=== PATIENT | male | born 2005 | race Hispanic/Latino ===

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

== ENCOUNTER → 2023-12-08 | Emergency (ER) | payer OTHER, SELFPAY ==
[~2023-12-08] MED LIST: DIAZEPAM 5 MG TABLET ONE; KETOROLAC 30 MG/ML INJ ONE; MORPHINE 4 MG/ML SYR ONE; NA CHLORIDE 0.9% 1,000 ML ONE; ONDANSETRON 4 MG/2 ML VIAL ONE
[2023-12-08 14:05] LABS: Absolute Lymphocytes (CBC) 1.3 K/uL (0.7-4.9); Hematocrit 46.2 % (39.6-49.0); Lymphocytes % 11.3 % (15.3-44.8); MCV 90.9 fL (80-100); MPV 7.9 fL (7.6-11.3); Platelets 386 thou/uL (152-406); RBC Red Blood Cell Count 5.09 M/uL (4.33-5.43)
[2023-12-08 14:20] LABS: Albumin 4.2 g/dL (3.4-5.0); Bilirubin Total 0.9 mg/dL (0.2-1.0); Potassium 4.2 mEq/L (3.5-5.1)
--- NOTE | 2023-12-08 15:41 | RAD REPORT ---
EXAM DESCRIPTION: CT - Chest Abdomen Pelvis W Cont - 12/08/2023 2:05 pm CLINICAL HISTORY: Dyspnea;Pain COMPARISON: No comparisons TECHNIQUE: Thin axial CT images of the chest, abdomen, and pelvis, performed following intravenous a dministration of 100mL Isovue-300. Multiplanar reformats were generated and reviewed. All CT scans are performed using dose optimization technique as appropriate and may include automated exposure control or mA/KV adjustment according to patient size. FINDINGS: The lungs are clear apart from subsegmental dependent left lower lobe atelectasis.No pleur al or pericardial effusion.No intrathoracic adenopathy. The liver, spleen, pancreas, adrenal glands and kidneys are within normal limits. No bowel obstruction, free air, free fluid or abscess. Normal appendix. No pathologic lymphadenopath y in the abdomen or pelvis. Rib plating hardware along the lateral left fifth and sixth ribs, and posterior left 6- 8th ribs. Add itional posterior healing rib fractures with variable degrees of displacement involving the posterior left fifth, ninth, and tenth ribs. IMPRESSION: No acute intrathoracic or intra-abdominal process. Posterior healing left fifth, ninth, and tenth rib fractures. Other fractures with sequelae of hardwa re fixation involving the fifth-eighth ribs.
--- NOTE | 2023-12-08 15:59 | EDPHYS ---
Physician Documentation [facility] Name: Rush Kinney Age: 18 yrs Sex: Male : 2005 Arrival Date: 12/08/2023 Time: 12:43 Bed 12 Private MD: XOCHITL Physician Kan Brown HPI: 12/08 15:26 This 18 yrs old Male presents to ER via Ambulatory with complaints of Pain - garrick Swelling. 15:26 The patient presents with abdominal pain in the epigastric area, in the upper abdomen, garrick abdominal distention in the upper abdomen, in the lower abdomen. Onset: The symptoms/episode began/occurred 1 day(s) ago. The symptoms do not radiate. The patient or guardian reports chest pain that is located primarily in the anterior chest wall, left lateral anterior chest and left lateral posterior chest. Onset: The symptoms/episode began/occurred this morning, today. The pain does not radiate. Associated signs and symptoms: The patient has no apparent associated signs or symptoms. The chest pain is described as sharp. Modifying factors: The symptoms are alleviated by remaining still, the symptoms are aggravated by cough, deep breath, movement, twisting torso. Historical: - Allergies: 12:50 No Known Allergies; ll1 - PMHx: 12:50 Asthma; ll1 - PSHx: 12:50 rib SX (Asthma); ll1 - Immunization history:: Adult Immunizations up to date. - Social history:: Smoking status: Patient/guardian denies using tobacco. - Family history:: not pertinent. ROS: 15:26 Constitutional: Negative for fever, chills, and weight loss, Eyes: Negative for injury, garrick pain, redness, and discharge, ENT: Negative for injury, pain, and discharge, Neck: Negative for injury, pain, and swelling, Cardiovascular: Negative for chest pain, palpitations, and edema, Back: Negative for injury and pain, : Negative for injury, bleeding, discharge, and swelling, MS/Extremity: Negative for injury and deformity, Skin: Negative for injury, rash, and discoloration, Neuro: Negative for headache, weakness, numbness, tingling, and seizure, Psych: Negative for depression, anxiety, suicide ideation, homicidal ideation, and hallucinations, Allergy/Immunology: Negative for hives, rash, and allergies, Endocrine: Negative for neck swelling, polydipsia, polyuria, polyphagia, and marked weight changes, Hematologic/Lymphatic: Negative for swollen nodes, abnormal bleeding, and unusual bruising, 15:26 Respiratory: Positive for shortness of breath, Negative for shortness of breath, 15:26 Abdomen/GI: Positive for abdominal pain, abdominal cramps, of the anterior aspect of left lateral abdomen, posterior aspect of left lateral abdomen and left upper quadrant, Exam: 15:26 Constitutional: This is a well developed, well nourished patient who is awake, alert, garrick and in no acute distress. Head/Face: Normocephalic, atraumatic. Eyes: Pupils equal round and reactive to light, extra-ocular motions intact. Lids and lashes normal. Conjunctiva and sclera are non-icteric and not injected. Cornea within normal limits. Periorbital areas with no swelling, redness, or edema. ENT: Nares patent. No nasal discharge, no septal abnormalities noted. Tympanic membranes are normal and external auditory canals are clear. Oropharynx with no redness, swelling, or masses, exudates, or evidence of obstruction, uvula midline. Mucous membranes moist. Neck: Trachea midline, no thyromegaly or masses palpated, and no cervical lymphadenopathy. Supple, full range of motion without nuchal rigidity, or vertebral point tenderness. No Meningismus. Cardiovascular: Regular rate and rhythm with a normal S1 and S2. No gallops, murmurs, or rubs. Normal PMI, no JVD. No pulse deficits. Back: No spinal tenderness. No costovertebral tenderness. Full range of motion. Male : Normal genitalia with no discharge or lesions. Skin: Warm, dry with normal turgor. Normal color with no rashes, no lesions, and no evidence of cellulitis. MS/ Extremity: Pulses equal, no cyanosis. Neurovascular intact. Full, normal range of motion. Neuro: Awake and alert, GCS 15, oriented to person, place, time, and situation. Cranial nerves II-XII grossly intact. Motor strength 5/5 in all extremities. Sensory grossly intact. Cerebellar exam normal. Normal gait. Psych: Awake, alert, with orientation to person, place and time. Behavior, mood, and affect are within normal limits. 15:26 Chest/axilla: Inspection: normal, Palpation: tenderness, that is moderate, of the left lateral anterior chest and left lateral posterior chest, Axilla: are normal, Lymph nodes: lymphadenopathy is not appreciated, 15:26 Abdomen/GI: Inspection: abdomen appears normal, Bowel sounds: normal, Palpation: mild abdominal tenderness, moderate abdominal tenderness, in the anterior aspect of left lateral abdomen, posterior aspect of left lateral abdomen and left upper quadrant, Liver: no appreciated palpable abnormalities, Hernia: not appreciated, Vital Signs: 12:50 BP 122 / 63; Pulse 80; Resp 17; Temp 98; Pulse Ox 100% ; Weight 78.93 kg; Height 5 ft. ll1 11 in. ; Pain 8/10; 12:50 Body Mass Index 24.27 (78.93 kg, 180.34 cm) ll1 12:50 Pain Scale: Adult ll1 MDM: 12:47 Patient medically screened. garrick 15:29 Differential diagnosis: bowel obstruction, GI Bleed, non-specific abd pain, garrick pancreatitis, Peptic Ulcer Disease, urinary tract infection, Chest Wall Contusion Chest Wall Injury Pleural Effusion Pneumomediastinum Pneumopericardium Pneumothorax Pulmonary Contusion. Data reviewed: vital signs, nurses notes, lab test result(s), radiologic studies, CT scan. Consideration of Admission/Observation Escalation of care including admission/observation considered. I considered the following discharge prescriptions or medication management in the emergency department Medications were administered in the Emergency Department. See MAR. Independent interpretation of the following test(s) in the Emergency Department CT Scan: My interpretation is CT C/A/P. Test considered but Not performed: EKG: NO EKG. Historians other than the Patient: Parent: MOM, WELLINFORMED. Care significantly affected by the following chronic conditions: ASTHMA. Counseling: I had a detailed discussion with the patient and/or guardian regarding the historical points, exam findings, and any diagnostic results supporting the discharge/admit diagnosis, radiology results, the need for outpatient follow up. 12/08 13:36 Order name: CBC with Diff; Complete Time: 15:54 [facility] 12/08 13:36 Order name: Comprehensive Metabolic Panel; Complete Time: 15:54 [facility] 12/08 13:36 Order name: Lipase; Complete Time: 15:54 [facility] 12/08 13:36 Order name: CT Chest, Abdomen, Pelvis - W/Contrast; Complete Time: 15:54 [facility] 12/08 13:36 Order name: INCENTIVE SPIROMETRY [facility] 12/08 13:52 Order name: IV Start; Complete Time: 13:53 ll1 Administered Medications: 14:18 Drug: NS 0.9% IV 1000 ml IV at 1 bolus Per protocol; 1000 mL bolus Route: IV; Rate: 1 ll1 bolus; Site: right antecubital; 15:18 Follow up: Response: No adverse reaction; IV Status: Completed infusion; IV Intake: ll1 1000ml 14:18 Drug: morphine IVP or IV 4 mg IVP once over 4 mins Route: IVP; Infused Over: 4 mins; ll1 Site: right antecubital; 15:18 Follow up: Response: No adverse reaction ll1 14:18 Drug: Ondansetron IVP 4 mg IVP once; over 2 minutes Route: IVP; Site: right antecubital;ll1 14:18 Drug: Ketorolac IVP 30 mg IVP once Route: IVP; Site: right antecubital; ll1 14:18 Drug: Diazepam PO 5 mg PO once Route: PO; ll1 Disposition Summary: 12/08/23 15:58 Discharge Ordered Notes: Location: Home [facility] Problem: new [facility] Symptoms: have improved garrick Condition: Stable [facility] Diagnosis - Multiple fractures of ribs, left side garrick - Abdominal tenderness [facility] Followup: garrick - With: Private Physician - When: 2 - 3 days - Reason: Recheck today's complaints, Continuance of care, Re-evaluation by your physician Discharge Instructions: - Discharge Summary Sheet [facility] - Abdominal Pain, Adult garrick - Rib Fracture [facility] - How to Use an Incentive Spirometer [facility] - Rib Fracture, [id number] [facility] Forms: - Medication Reconciliation Form [facility] - Thank You Letter [facility] - Antibiotic Education [facility] - Prescription Opioid Use [facility] - Patient Portal Instructions [facility] - Leadership Thank You Letter [facility] Prescriptions: - diclofenac sodium 50 mg Oral tablet, delayed release (enteric coated) - take 1 tablet ORAL route 3 times per day; 21 tablet; Refills: 0, Product [facility] Selection Permitted - acetaminophen-codeine 300-30 mg Oral tablet - take 2 tablet ORAL route 3 times per day; 20 tablet; Refills: 0, Product [facility] Selection Permitted Signatures: Dispatcher [employer] Kan Chand MD MD cha Lewis, Lynsay, RN RN ll1
--- NOTE | 2023-12-08 15:59 | ER ---
Nurse's Notes [facility] Name: Rush Kinney Age: 18 yrs Sex: Male : 2005 Arrival Date: 12/08/2023 Time: 12:43 Bed 12 Private MD: Diagnosis: Multiple fractures of ribs, left side;Abdominal tenderness Presentation: 12/08 12:50 Chief complaint: Patient states: L sided rib SX end of October. Today awoke with pain ll1 to area, SOB, and near syncope feeling. No known fevers. Coronavirus screen: Vaccine status: Patient reports being unvaccinated. Client denies travel out of the [place] in the last 14 days. At this time, the client does not indicate any symptoms associated with coronavirus-19. Ebola Screen: Patient denies travel to an Ebola-affected area in the 21 days before illness onset. Initial Sepsis Screen: Does the patient meet any 2 criteria? No. Patient's initial sepsis screen is negative. Does the patient have a suspected source of infection? No. Patient's initial sepsis screen is negative. Risk Assessment: Do you want to hurt yourself or someone else? Patient reports no desire to harm self or others. Onset of symptoms was December 08, 2023. 12:50 Method Of Arrival: Ambulatory ll1 12:50 Acuity: VIRGIL 3 ll1 Triage Assessment: 12:54 General: Appears uncomfortable, Behavior is calm, cooperative, appropriate for age. ll1 Pain: Complains of pain in L ribs/trunk Pain currently is 0 out of 10 on a pain scale. Quality of pain is described as aching, Pain began 4 hours ago. Is intermittent, episodic, Aggravated by increased activity. Neuro: Reports a syncopal episode. Respiratory: Reports shortness of breath. Musculoskeletal: Reports pain in L ribs/trunk. Historical: - Allergies: 12:50 No Known Allergies; ll1 - PMHx: 12:50 Asthma; ll1 - PSHx: 12:50 rib SX (Asthma); ll1 - Immunization history:: Adult Immunizations up to date. - Social history:: Smoking status: Patient/guardian denies using tobacco. - Family history:: not pertinent. Screenin:15 [facility] ED Fall Risk Assessment (Adult) History of falling in the last 3 months, ap3 including since admission No falls in past 3 months (0 pts). Abuse screen: Denies threats or abuse. Nutritional screening: No deficits noted. Tuberculosis screening: No symptoms or risk factors identified. Assessment: 13:52 Reassessment: No changes from previously documented assessment. Patient and/or family ll1 updated on plan of care and expected duration. Pain level reassessed. Patient is alert, oriented x 3, equal unlabored respirations, skin warm/dry/pink. 14:18 Reassessment: No changes from previously documented assessment. Patient and/or family ll1 updated on plan of care and expected duration. Pain level reassessed. Vital Signs: 12:50 BP 122 / 63; Pulse 80; Resp 17; Temp 98; Pulse Ox 100% ; Weight 78.93 kg; Height 5 ft. ll1 11 in. ; Pain 8/10; 12:50 Body Mass Index 24.27 (78.93 kg, 180.34 cm) ll1 12:50 Pain Scale: Adult ll1 ED Course: 12:46 Patient arrived in ED. mg5 12:46 Kan Brown MD is Attending Physician. garrick 12:49 Arm band placed on Patient placed in an exam room, on a stretcher. ll1 12:52 Triage completed. ll1 13:52 Inserted saline lock: 20 gauge in right antecubital area, using aseptic technique. ll1 Blood collected. 13:53 Comprehensive Metabolic Panel Sent. ll1 13:53 CBC with Diff Sent. ll1 13:53 Lipase Sent. ll1 14:05 Sandeep Lopez, ARDEN is Primary Nurse. ll1 14:06 CT Chest, Abdomen, Pelvis - W/Contrast In Process Unspecified. EDMS 16:15 Patient has correct armband on for positive identification. Bed in low position. Call ap3 light in reach. Side rails up X 1. Adult w/ patient. Provided Education on: discharge instructions. 16:15 No provider procedures requiring assistance completed. IV discontinued, intact, ap3 bleeding controlled, No redness/swelling at site. Pressure dressing applied. Administered Medications: 14:18 Drug: NS 0.9% IV 1000 ml IV at 1 bolus Per protocol; 1000 mL bolus Route: IV; Rate: 1 ll1 bolus; Site: right antecubital; 15:18 Follow up: Response: No adverse reaction; IV Status: Completed infusion; IV Intake: ll1 1000ml 14:18 Drug: morphine IVP or IV 4 mg IVP once over 4 mins Route: IVP; Infused Over: 4 mins; ll1 Site: right antecubital; 15:18 Follow up: Response: No adverse reaction ll1 14:18 Drug: Ondansetron IVP 4 mg IVP once; over 2 minutes Route: IVP; Site: right antecubital;ll1 14:18 Drug: Ketorolac IVP 30 mg IVP once Route: IVP; Site: right antecubital; ll1 14:18 Drug: Diazepam PO 5 mg PO once Route: PO; ll1 Medication: 16:15 VIS not applicable for this client. ap3 Intake: 15:18 IV: 1000ml; Total: 1000ml. ll1 Outcome: 15:58 Discharge ordered by . garrick 16:15 Discharged to home ambulatory, with family, ap3 16:15 Condition: good 16:15 Discharge instructions given to patient, family, Instructed on discharge instructions, follow up and referral plans. medication usage, Demonstrated understanding of instructions, follow-up care, medications, Prescriptions given X 2, 16:16 Patient left the ED. ap3 Signatures: Dispatcher [employer] EDMS Kan Brown MD MD cha Prokisch, Amanda, RN RN ap3 Sandeep Lopez RN RN ll1 Alyson Jordan mg5
[2023-12-09 23:24] VITALS: BP 122/63; TEMP 98; O2SAT 100
== END ==
LOC: ER 12:43
DX: S22.42XA Multiple fractures of ribs, left side, initial encounter for closed fracture (principal)
CPT/HCPCS: 36415; 71260; 74177; 80053; 83690; 85025; J2405; J7030; Q9967

== ENCOUNTER → 2023-12-13 | Emergency (ER) | payer SELFPAY ==
[~2023-12-13] MED LIST changes: -DIAZEPAM 5 MG TABLET ONE; +FENTANYL CITR 100 MCG/2 ML ONE; +LORAZEPAM 1 MG TABLET ONE; +METHOCARBAMOL 1,000 MG/10 ML VIAL ONE; -MORPHINE 4 MG/ML SYR ONE; +NA CHLORIDE 0.9% 100 ML ONE; -ONDANSETRON 4 MG/2 ML VIAL ONE; +dexAMETHasone 10 MG/ML VIAL ONE
--- OUTSIDE RECORDS SUMMARY | 2023-12-13 19:13 | XMS REPORT | Continuity of Care Document ---
Author Name Unknown Address [address] [facility] [address]. [address] [place] [address] [facility] thconnect Address [address] [facility]. [address] [place] [address] Care Team Providers Care Street Vendor Name Role Phone GRACIELA BRARIOS Attending Clinician Unavailable Paulina Miranda Attending Clinician Unavailable Carroll Harkins Attending Clinician Unavailable Physician, No Primary or Family Admitting Clinic criss Unavailable Carroll Harkins Admitting Clinician Unavailable Payers Payer Name Policy Type Policy Number Effective Date Expirati on Date Source Allergies, Adverse Reactions, Alerts Allergy Name Allergy Type Status Severity Reaction(s) Onset Date Inactive Date Treating Clinician Comments Source No Known Allergie s DA Active U 2022-11 00:00: 00 [facility] NO KNOWN ALLERGIE S Drug Class Active [facility] Procedures Procedure Date / Time Performed Performing Clinicia n Source [id number] 2023-10-20 00:00:00 ANGJO.03 [facility] Dawit [facility] [id number] 2023-10-20 00:00:00 ANGJO.03 [facility] Dawit [facility] [id number] 2023-10-19 00:00:00 ANGJO.03 [facility] Dawit [facility] [id number] 2023-10-19 00:00:00 ANGJO.03 LAURIE Pastor [facility] [id number] 2023-10-17 00:00:00 OUYYA LAURIE Pastor [facility] [id number] 2023-10-17 00:00:00 OULANE Pastor [facility] Encounters Start Date/Time End Date/Time Encounter Type Admission Type Attending [facility] Care Facility Care Department Encounter ID Source 2023-12-09 16:48:00 2023-12-09 17:51:00 Emergency EM Paulina Miranda HCANW ROBINSON [id number] [facility] 2023-10-17 03:35:00 2023-10-25 01:17:00 Inpatient EM Carroll Harkins HCANW TRA [id number] [facility] Results Test Description Test Time Test Comments Results Resul t Comments Source - XR CHEST 1 V 2023-10-24 12:58[facility] 2005 Sex: M Patient Name: RICO MERLOS Unit No: [id number] EXAMS: CPT: [id number] XR CHEST 1 V 73858 EXAM: - XR CHEST 1 V 10/24/2023 12:56 PM CLINICAL INFORMATION: Chest tube removal. TECHNIQUE: 1 view of the chest. COMPARISON: Chest x-ray from earlier in the day FINDINGS: Support devices: None. Mediastinum: Normal size and contour. Heart: Normal in size. Lungs: Bibasilar subsegmental atelectasis. No definite consolidation. Pleura/diaphragm: No definite pneumothorax status post removal of left-sided chest tube. Probable trace bilateral pleural effusions. Bones: Status post internal fixation of the left posterior 6th-8th ribs. Soft tissues/other: Small amount of subcutaneous air in the left supra clavicular fossa. IMPRESSION: No pneumothorax status post removal of left-sided chest tube. Small amount of left supraclavicular fossa soft tissue air. at 1258 Reported and signed by: Catherine Rob MD CC: Carroll Harkins MD; Guadalupe KRAUS Technologist: JANET Barboza Time: DAP (Gy m2): Air Kerma (mGy): Trscr Dt/Tm: 10/24/2023 (5018) by:Colby Orig Print D/T: S: 10/24/2023 (0494) BATCH NO: N/A Name: RICO MERLOS [facility] Phys: Guadalupe Fuentes [address] : 2005 Age: 18 Sex: M [place], [place] [address] Loc: N.[phone] 1 Exam Date: 10/24/2023 Status: ADM IN PH: FAX: PAGE 1 Signed Report - XR CHEST 1 V 2023-10-24 08:00:00 [facility] 2005 Sex: M Patient Name: RICO MERLOS Unit No: [id number] EXAMS: CPT: [id number] XR CHEST 1 V 23546 EXAM: SINGLE VIEW OF THE CHEST HISTORY: Trauma/chest tube. COMPARISON: X-ray 10/23/2023. FINDINGS: Lines/tubes: Stable positioning of the left-sided chest tube with the tip terminating at the lung apex. Lungs/Pleura: Low lung volumes with mild bronchovascular crowding and bibasilar atelectasis. Persistent obscuration of the left hemidiaphragm. No sizable pneumothorax identified. Heart/mediastinum: Cardiomediastinal silhouette is within normal limits. Bones/soft tissues: Plate and screw fixation of multiple left-sided ribs. IMPRESSION: Stable positioning of left-sided chest tube. No definitive pneumothorax. Low lung volumes with bronchovascular crowding and bibasilar atelectasis. at 0800 Reported and signed by: Aramis Corrales DO CC: Carroll Harkins MD; Guadalupe KRAUS Technologist: Kitty Barboza Time: DAP (Gy m2): Air Kerma (mGy): Trscr Dt/Tm: 10/24/2023 (0800) by:[email or web address] BATCH NO: N/A Name: RICO MERLOS [facility] Phys: Guadalupe Fuentes [address] [facility] : 2005 Age: 18 Sex: M [place] [id number] Loc: N.[phone] 1 Exam Date: 10/24/2023 Status: ADM IN PH: FAX: PAGE 1 Signed Report - XR CHEST 1 [id number] 09:20:00 [facility] : 2005 Sex: MPatient Name: RICO MERLOS Unit No: [id number] EXAMS: CPT: [id number] XR CHEST 1 V 97162 Clinical History: Hemopneumothorax, chest tube. Exam: - XR CHEST 1 V Technique: Portable AP semiupright chest radiograph Comparison: Prior exam(s) dated 10/22/2023 Findings: Similar low lung volumes. The cardiomediastinal silhouette is stable. Left-sided chest tubes remaining in place. Reticular opacities of the dependent lower lung zones and more diffuse groundglass density of the left hemithorax with partial obscuration of the hemidiaphragms. There is slight increased indistinctness of the left hemidiaphragm. No sizable pneumothorax appreciated. Plate and screws stabilizing several left-sided rib fractures. Impression: Slight worsened aeration on the left with increased opacity at the left lung base and mild diffuse density of the left hemithorax which may be related to layering pleural fluid. Similar right lung base opacity. at 0920 Reported and signed by: Galilea Broussard MD CC: Carroll Harkins MD; Guadalupe KRAUS Technologist: Neha Barboza Time: DAP (Gy m2): Air Kerma (mGy): Trscr Dt/Tm: 10/23/2023 (919) by:[email or web address] Orig Print D/T: S: 10/23/2023 (922) BATCH NO: N/A Name: MERLOSRICO [facility] Phys: Guadalupe Fuentes PA[address] [facility] : 2005 Age: 18 Sex: M [place], [place] [address] Loc: N.[phone] 1 Exam Date: 10/23/2023 Status: ADM IN PH: FAX: PAGE 1 Signed Report- XR CHEST 1 [id number] 14:27:00 [facility] 2005 Sex: MPatient Name: RICO MERLOS Unit No: [id number] EXAMS: CPT: [id number] XR CHEST 1 V 96841 Clinical History: chest tube waterseal. Exam: - XR CHEST 1 V Technique: Portable AP chest radiograph at 1403 hours Comparison: Prior exam(s) from same date Findings: Similar slightly low lung volumes. The wilks mediastinal silhouette is stable. Left-sided chest tubes remain in place. Mild patchy reticular densities of the mid to lower lung zones bilaterally. The costophrenic angles are partially obscured. Plate and screws stabilizing several left-sided rib fractures. No sizable pneumothorax seen. Subcutaneous emphysema of the left chest wall and at the left lower cervical region. Impression: No significant pneumothorax or other significant change appreciated. at 1427 Reported and signed by: Galilea Broussard MD CC: Carroll Harkins MD; Laisha KRAUS Technologist: Neha Barboza Time: DAP (Gy m2): Air Kerma (mGy): Trscr Dt/Tm: 10/22/2023 (1427) by:[email or web address] Orig Print D/T: S: 10/22/2023 (6519) BATCH NO: N/A Name: RICO MERLOS [facility] Phys:SULTANALI.Marilu - Laisha Silva [address] : 2005 Age: 18 Sex: [place], [place] [address] [id number] Loc: N.6007 1 Exam Date: 10/22/2023 Status: ADM IN PH: FAX: PAGE 1 Signed Report- XR CHEST 1 [id number] 07:33:00 [facility] 2005 Sex: MPatient Name: RICO MERLOS Unit No: [id number] EXAMS: CPT: [id number] XR CHEST 1 V 52300 CHEST RADIOGRAPH, ONE VIEW: FRONTAL HISTORY: Shortness of breath. COMPARISON: October 21, 2023. FINDINGS: Soft tissue emphysema in the left neck and left chest wall. A right chest tube is in place. No pneumothorax.Dependent lung atelectasis. Surgery to left ribs. Cardiac silhouette is magnified. IMPRESSION: No pn eumothorax. at 0733 Reported and signed by: Kiya Zaman MD CC: Janes Moyer MD; Carroll Harkins MD Technologist: Niko Barboza Time: DAP (Gy m2): Air Kerma (mGy): Trscr Dt/Tm: 10/22/2023 (07) by:[email or web address] Orig Print D/T: S: 10/22/2023 (0736) BATCH NO: N/A Name: RICO MERLOS [facility] Phys: Janes Asher MD [address] : 2005 Age: 18 Sex: M [place], [place] [address] Loc: N.6007 1 Exam Date: 10/22/2023 Status: ADM IN PH: FAX: PAGE 1 Signed ReportCBC W/AUTO [id number] 05:30:00* Test Item Value Reference Range Interpretation Comme nts WHITE BLOOD CELL (test code = WBC) 11.2 x10 3/uL 3.2-11.5 N RED BLOOD CELL (test code = RBC) 3.67 x10(6)/m 4.20-5.70 L HEMOGLOBIN (test code = HGB) 11.4 g/dL 12.9-17.3 L HEMATOCRIT (test code = HCT) 34.0 % 38.7-51.0 L MEAN CELL VOLUME (test code = MCV) 93 fL 80-100 N MEAN CELL HGB (test code = MCH) 31.1 pg 26.7-33.3 N MEAN CELL HGB CONCENTRATION (test code = MCHC) 33.5 g/dL 30.0-34.0 N RED CELL DISTRIBUTION WIDTH (test code = RDW) 12.3 % 11.3-14.5 N PLATELET COUNT (test code = PLT) 349 x10 3/uL 130-408 N MEAN PLATELET VOLUME (test c ode = MPV) 9.1 fL 8.6-12.6 N NEUTROPHIL % (test code = NT%) 64.2 % 40.0-70.0 N LYMPHOCYTE % (test code = LY%) 14.5 % 20-40 L MONOCYTE % (test code = MO%) 15.0 % 1-10 H EOSINOPHIL % (test code = EO%) 3.8 % 0.0-5.0 N BASOPHIL % (test code = BA%) 0.4 % 0.0-1.0 N NUCLEATED RBC % (test code = NRBC%) 0.0 % 0.0-0.9 N NEUTROPHIL # (test code = NT#) 7.2 x10 3/uL 1.6-7.2 N LYMPHOCYTE # (test code = LY#) 1.62 x10 3/uL 1.1-2.7 N MONOCYTE # (test code = MO#) 1.7 x10 3/uL 0.3-0.8 H EOSINOPHIL # (test code = EO#) 0.4 x10 3/uL 0.0-0.5 N IMMATURE GRANULOCYTE % (test code = IG%) 2.1 % 0.0-2.0 H BASOPHIL # (test code = BA#) 0.1 x10 3/uL 0.0-0.1 N BASIC METABOLIC [id number] 05:16:00* Test Item Value Reference Range Interpretation Comme nts SODIUM (test code = NA) 136 mmol/L 135-145 N POTASSIUM (test code = K) 3.4 mmol/L 3.6-5.0 L CHLORIDE (test code = CL) 103 mmol/L 101-111 N CARBON DIOXIDE (test code = CO2) 26 mmol/L 21-31 N GLUCOSE (test code = GLU) 104 mg/dl 70-100 H BLOOD UREA NITROGEN (test code = BUN) 6 mg/dl 6-20 N GLOMERULAR FILTRATION RATE (test code = GFR) >=60 max estimate >60 The Glomerular Filtration Rate is a calculated parameterbased on serum Creatinine, patient age and sex. GFR valuesless than 60 mL/min/1.73 square meters are indicative ofChronic Kidney Disease. Values less than 15 mL/min/1.73square meters indicate Kidney failure. The calculation forGFR is based on the CKD-EPI (2020) calculation. This formulais race indifferent and is the recommended formula for GFRby the National Kidney Foundation for Adults.The GFR will not calculate if the sex is unknown or if thepatient's age is <18 years. CREATININE (test code = CREAT) 0.77 mg/dL 0.64-1.27 N CALCIUM (test code = CA) 8.2 mg/dL 8.5-10.5 L INDEX HEMOLYSIS (test code = HEMINDEX) 0 Index/DL See_Comment [Automated messa ge] The system which generated this result transmitted reference range: 1 NORMAL. The reference range was not used to interpret this result as normal/abnormal. INDEX ICTERIC (test code = ICTINDEX) 1 Index/DL See_Comment [Automated messa ge] The system which generated this result transmitted reference range: 1 NORMAL. The reference range was not used to interpret this result as normal/abnormal. INDEX LIPEMIA (test code = LIPINDEX) 0 Index/DL See_Comment [Automated messa ge] The system which generated this result transmitted reference range: 1 NORMAL. The reference range was not used to interpret this result as normal/abnormal. [id number] 05:16:00* Test Item Value Reference Range Interpretation Comme nts PHOSPHOROUS (test code = PHOS) 2.5 mg/dl 2.5-4.6 N CREATINE KINASE (CK)2023-10-22 05:16:00* Test Item Value Reference Range Interpretation Comme nts CREATINE KINASE (CK) (test code = CK) 949 U/L 0-243 HH PREVIOUSLY CANTRELL D. [id number] 05:16:00* Test Item Value Reference Range Interpretation Comme nts MAGNESIUM (test code = MAG) 1.8 mg/dl 1.8-2.5 N CREATINE KINASE (CK)2023-10-21 12:32:00* Test Item Value Reference Range Interpretation Comme nts CREATINE KINASE (CK) (test code = CK) 2010 U/L 0-243 HH PREVIOUSLY ÓSCAR Potter Comment: PLEASE ADD TO BLOOD IN LAB THIS AMADD ONCALCIUM [id number] 04:59:00* Test Item Value Reference Range Interpretation Comme nts CALCIUM IONIZED (test code = ROCHELLE) 1.17 mmol/L 1.13-1.32 N BASIC METABOLIC [id number] 04:53:00* Test Item Value Reference Range Interpretation Comme nts SODIUM (test code = NA) 135 mmol/L 135-145 N POTASSIUM (test code = K) 3.5 mmol/L 3.6-5.0 L CHLORIDE (test code = CL) 104 mmol/L 101-111 N CARBON DIOXIDE (test code = CO2) 25 mmol/L 21-31 N GLUCOSE (test code = GLU) 97 mg/dl 70-100 N BLOOD UREA NITROGEN (test code = BUN) 9 mg/dl 6-20 N GLOMERULAR FILTRATION RATE (test code = GFR) >=60 max estimate >60 The Glomerular Filtration Rate is a calculated parameterbased on serum Creatinine, patient age and sex. GFR valuesless than 60 mL/min/1.73 square meters are indicative ofChronic Kidney Disease. Values less than 15 mL/min/1.73square meters indicate Kidney failure. The calculation forGFR is based on the CKD-EPI (2020) calculation. This formulais race indifferent and is the recommended formula for GFRby the National Kidney Foundation for Adults.The GFR will not calculate if the sex is unknown or if thepatient's age is <18 years. CREATININE (test code = CREAT) 0.80 mg/dL 0.64-1.27 N CALCIUM (test code = CA) 8.2 mg/dL 8.5-10.5 L INDEX HEMOLYSIS (test code = HEMINDEX) 0 Index/DL See_Comment [Automated messa ge] The system which generated this result transmitted reference range: 1 NORMAL. The reference range was not used to interpret this result as normal/abnormal. INDEX ICTERIC (test code = ICTINDEX) 1 Index/DL See_Comment [Automated messa ge] The system which generated this result transmitted reference range: 1 NORMAL. The reference range was not used to interpret this result as normal/abnormal. INDEX LIPEMIA (test code = LIPINDEX) 0 Index/DL See_Comment [Automated messa ge] The system which generated this result transmitted reference range: 1 NORMAL. The reference range was not used to interpret this result as normal/abnormal. [id number] 04:53:00* Test Item Value Reference Range Interpretation Comme nts PHOSPHOROUS (test code = PHOS) 1.7 mg/dl 2.5-4.6 L [id number] 04:53:00* Test Item Value Reference Range Interpretation Comme nts MAGNESIUM (test code = MAG) 1.7 mg/dl 1.8-2.5 L CBC W/AUTO [id number] 04:43:00* Test Item Value Reference Range Interpretation Comme nts WHITE BLOOD CELL (test code = WBC) 12.7 x10 3/uL 3.2-11.5 H RED BLOOD CELL (test code = RBC) 3.80 x10(6)/m 4.20-5.70 L HEMOGLOBIN (test code = HGB) 11.8 g/dL 12.9-17.3 L HEMATOCRIT (test code = HCT) 35.3 % 38.7-51.0 L MEAN CELL VOLUME (test code = MCV) 93 fL 80-100 N MEAN CELL HGB (test code = MCH) 31.1 pg 26.7-33.3 N MEAN CELL HGB CONCENTRATION (test code = MCHC) 33.4 g/dL 30.0-34.0 N RED CELL DISTRIBUTION WIDTH (test code = RDW) 12.6 % 11.3-14.5 N PLATELET COUNT (test code = PLT) 293 x10 3/uL 130-408 N MEAN PLATELET VOLUME (test c ode = MPV) 9.2 fL 8.6-12.6 N NEUTROPHIL % (test code = NT%) 72.2 % 40.0-70.0 H LYMPHOCYTE % (test code = LY%) 12.8 % 20-40 L MONOCYTE % (test code = MO%) 11.4 % 1-10 H EOSINOPHIL % (test code = EO%) 2.4 % 0.0-5.0 N BASOPHIL % (test code = BA%) 0.4 % 0.0-1.0 N NUCLEATED RBC % (test code = NRBC%) 0.0 % 0.0-0.9 N NEUTROPHIL # (test code = NT#) 9.2 x10 3/uL 1.6-7.2 H LYMPHOCYTE # (test code = LY#) 1.63 x10 3/uL 1.1-2.7 N MONOCYTE # (test code = MO#) 1.5 x10 3/uL 0.3-0.8 H EOSINOPHIL # (test code = EO#) 0.3 x10 3/uL 0.0-0.5 N IMMATURE GRANULOCYTE % (test code = IG%) 0.8 % 0.0-2.0 N BASOPHIL # (test code = BA#) 0.1 x10 3/uL 0.0-0.1 N - XR CHEST 1 [id number] 03:38:00 [facility] 2005 Sex: MPatient Name: RICO MERLOS Unit No: [id number] EXAMS: CPT: [id number] XR CHEST 1 V 62881 Portable chest,10/21/2023. Clinical: Trauma. Comment: The heart, mediastinum, hilar regions and pulmonary vasculature appear stable. There is a left thoracostomy tube. No pneumothorax is detected. There are postsurgical changes status post left rib plating. There has been interval improvement in aeration. The gastric tube has been removed. Soft tissue emphysema is noted primarily to the left of midline. IMPRESSION: Interval improvement since 10/20/2023. at 0338 Reported and signed by: Ronald Sofia MD CC: Jaye Becerra MD; Carroll Harkins MD Landon hnologist: SASHA Kelly Fluoro Time: DAP (Gy m2): Air Kerma (mGy): Trscr Dt/Tm: 10/21/2023 (0338) by:[email or web address] Orig Print D/T: S: 10/21/2023 (0342) BATCH NO: N/A Name: RICO MERLOS [facility] Phys: Jaye Jacques [address] : 2005 Age: 18 Sex: M [place], [place] [address] Loc: N.0703 1 Exam Date: 10/21/2023 Status: ADM IN PH: FAX: PAGE 1 Signed [id number] 22:26:00* Test Item Value Reference Range Interpretation Comme nts HEMOGLOBIN (test code = HGB) 11.8 g/dL 12.9-17.3 L CREATINE KINASE (CK)2023-10-20 15:36:00* Test Item Value Reference Range Interpretation Comme nts CREATINE KINASE (CK) (test code = CK) 3103 U/L 0-243 HH PREVIOUSLY CANTRELL D. [id number] 15:10:00* Test Item Value Reference Range Interpretation Comme nts HEMOGLOBIN (test code = HGB) 12.3 g/dL 12.9-17.3 L SURGICAL [id number] 14:02:00* Test Item Value Reference Range Interpretation Comme [facility] SURGICAL SPECIMENS (test code = SURG) RUN DATE: 10/20/23 [facility] PAGE 1 RUN TIME: 1402 Specimen Inquiry RUN USER: INTERFACE PATIENT: RICO MERLOS LOC: MAGALIE Wilkins #: [id number] AGE/SX: 18/M ROOM: [facility] RE10/17/23REG DR: Carroll Harkins MD : 03 BED: 1 DIS: STATUS: ADM IN TLOC: SPEC #: [id number] RECD: 10/18/23-103 STATUS: [facility] #: [id number] TRI: 10/17/23-[address]: Carorll Harkins MD ENTERED: 10/18/231208 SP TYPE: SURG OTHR DR: No Primary or Family Physician Self Referred Kat Rodriguez MDORDERED: PATHGM4, PATH SPEC, H E STAIN TISSUES: A. SPLEEN - Spleen CLINICAL HISTORY Diagnosis/Clinical Data: Spleen, trauma Operative Procedure: Exploratory laparotomy FINAL DIAGNOSIS Spleen, splenectomy: Lacerated spleen with abundant hemorrhage No malignancy identified Electronically signed by: Tj Hopkins MD GROSS DESCRIPTION Received fresh labeled "spleen" is a 130 g, 11.0 x 7.5 x 3.0 cm splenectomy specimen. The capsule contains focal melchor-red, hemorrhagic areas and tears. Upon sectioning the parenchyma is melchor-red and contains areas of blood clot. The outer capsule is melchor-pink and dusky. No masses or potential lymph nodes are identified. Sleep Tech sections are submitted in cassettes as follows, A1 - A4. TR 10/19/2023 11:34 AM MICROSCOPIC DESCRIPTION A microscopic examination has been performed and the findings are incorporated in the diagnosis above. Signed SIGNATURE ON FILE Tj Hopkins MD 10/20/23 1402 END OF REPORT [id number] 08:55:00* Test Item Value Reference Range Interpretation Comme [facility] HEMOGLOBIN (test code = HGB) 12.8 g/dL 12.9-17.3 L TROP-I HIGH [id number] 03:06:00* Test Item Value Reference Range Interpretation Comme [facility] TROP-I HIGH SENSITIVITY (test code = TROPIHS) 222 pg/mL 0-20 HH PREVIOUSLY ÓSCAR Potter99th Percentile Upper Reference Limit (URL):Females: 14 pg/mLMales: 20 pg/mL The demonstration of a rise or fall (over a 2hour period)of 5 pg/mL or greater may be clinically significant. A riseor fall of 20 pg/mL or greater is considered definitivelysignificant of possible acute myocardial injury. NOTE: Results from different methodologies should not becompared as quantitative results vary by method. CALCIUM [id number] 02:53:00* Test Item Value Reference Range Interpretation Comme [facility] CALCIUM IONIZED (test code = ROCHELLE) 1.15 mmol/L 1.13-1.32 N BASIC METABOLIC [id number] 02:49:00* Test Item Value Reference Range Interpretation Comme nts SODIUM (test code = NA) 136 mmol/L 135-145 N POTASSIUM (test code = K) 3.9 mmol/L 3.6-5.0 N CHLORIDE (test code = CL) 106 mmol/L 101-111 N CARBON DIOXIDE (test code = CO2) 22 mmol/L 21-31 N GLUCOSE (test code = GLU) 141 mg/dl 70-100 H BLOOD UREA NITROGEN (test code = BUN) 13 mg/dl 6-20 N GLOMERULAR FILTRATION RATE (test code = GFR) >=60 max estimate >60 The Glomerular Filtration Rate is a calculated parameterbased on serum Creatinine, patient age and sex. GFR valuesless than 60 mL/min/1.73 square meters are indicative ofChronic Kidney Disease. Values less than 15 mL/min/1.73square meters indicate Kidney failure. The calculation forGFR is based on the CKD-EPI (202) calculation. This formulais race indifferent and is the recommended formula for GFRby the National Kidney Foundation for Adults.The GFR will not calculate if the sex is unknown or if thepatient's age is <18 years. CREATININE (test code = CREAT) 0.85 mg/dL 0.64-1.27 N CALCIUM (test code = CA) 7.8 mg/dL 8.5-10.5 L INDEX HEMOLYSIS (test code = HEMINDEX) 0 Index/DL See_Comment [Automated messa ge] The system which generated this result transmitted reference range: 1 NORMAL. The reference range was not used to interpret this result as normal/abnormal. INDEX ICTERIC (test code = ICTINDEX) 1 Index/DL See_Comment [Automated messa ge] The system which generated this result transmitted reference range: 1 NORMAL. The reference range was not used to interpret this result as normal/abnormal. INDEX LIPEMIA (test code = LIPINDEX) 0 Index/DL See_Comment [Automated messa ge] The system which generated this result transmitted reference range: 1 NORMAL. The reference range was not used to interpret this result as normal/abnormal. [id number] 02:49:00* Test Item Value Reference Range Interpretation Comme nts PHOSPHOROUS (test code = PHOS) 2.5 mg/dl 2.5-4.6 N [id number] 02:49:00* Test Item Value Reference Range Interpretation Comme nts MAGNESIUM (test code = MAG) 1.8 mg/dl 1.8-2.5 N CBC W/AUTO [id number] 02:39:00* Test Item Value Reference Range Interpretation Comme nts WHITE BLOOD CELL (test code = WBC) 15.2 x10 3/uL 3.2-11.5 H RED BLOOD CELL (test code = RBC) 4.07 x10(6)/m 4.20-5.70 L HEMOGLOBIN (test code = HGB) 12.7 g/dL 12.9-17.3 L HEMATOCRIT (test code = HCT) 38.2 % 38.7-51.0 L MEAN CELL VOLUME (test code = MCV) 94 fL 80-100 N MEAN CELL HGB (test code = MCH) 31.2 pg 26.7-33.3 N MEAN CELL HGB CONCENTRATION (test code = MCHC) 33.2 g/dL 30.0-34.0 N RED CELL DISTRIBUTION WIDTH (test code = RDW) 12.8 % 11.3-14.5 N PLATELET COUNT (test code = PLT) 238 x10 3/uL 130-408 N MEAN PLATELET VOLUME (test c ode = MPV) 9.4 fL 8.6-12.6 N NEUTROPHIL % (test code = NT%) 88.0 % 40.0-70.0 H IMMATURE GRANULOCYTE % (test code = IG%) 0.4 % 0.0-2.0 N LYMPHOCYTE % (test code = LY%) 5.1 % 20-40 L MONOCYTE % (test code = MO%) 6.1 % 1-10 N EOSINOPHIL % (test code = EO%) 0.1 % 0.0-5.0 N BASOPHIL % (test code = BA%) 0.3 % 0.0-1.0 N NUCLEATED RBC % (test code = NRBC%) 0.0 % 0.0-0.9 N NEUTROPHIL # (test code = NT#) 13.3 x10 3/uL 1.6-7.2 H LYMPHOCYTE # (test code = LY#) 0.78 x10 3/uL 1.1-2.7 L MONOCYTE # (test code = MO#) 0.9 x10 3/uL 0.3-0.8 H EOSINOPHIL # (test code = EO#) 0.0 x10 3/uL 0.0-0.5 N BASOPHIL # (test code = BA#) 0.1 x10 3/uL 0.0-0.1 N - XR CHEST 1 [id number] 02:14:00 [facility] 2005 Sex: MPatient Name: RICO MERLOS Unit No: [id number] EXAMS: CPT: [id number] XR CHEST 1 V 40470 Chest, multiple views, 10/20/2023. Clinical: Possible foreign body. Comment: Metallic rib plates/screws, left thoracostomy tube, gastric tube and left upper quadrant [place] drain are profiled. Metallic skin hilario are noted. No radiopaque foreign body is detected. at 0214 Reported and signed by: Ronald Sofia MD CC: Nader Moreno MD; Carroll Harkins MD Technologist: KATIE Barboza Time: DAP (Gy m2): Air Kerma (mGy): Trscr Dt/Tm: 10/20/2023 (213) by:[email or web address] Orig Print D/T: S: 10/20/2023 (021) BATCH NO: N/A Name: RIOC MERLOS [facility] Phys: Nader Navarro MD [address] [facility] : 2005 Age: 18 Sex: M [place], [place] [address] Loc: N.[phone] 1 Exam Date: 10/20/2023 Status: ADM IN PH: FAX: PAGE 1 Signed Report- XR CHEST 1 [id number] 02:04:00 [facility] 2005 Sex: MPatient Name: RICO MERLOS Unit No: [id number] EXAMS: CPT: [id number] XR CHEST 1 V 62665 Portable chest, 10/20/2023. COMPARISON: 10/19/2023. Clinical: Postop. Comment: There are postsurgical changes status post plating involving the left 6db-3oh-7yc-8th ribs. The gastric, left thoracostomy tubes and left upper quadrant Cristina drain remain in place. There is soft tissue emphysema primarily within the left neck/axilla and along the midaxillary line. There is subsegmental atelectasis within the right base. No definite pneumothorax is detected. IMPRESSION: Status post rib plating since 10/19/2023. El ectronically Signed by Ronald Sofia MD on 10/20/2023 at 0204 Reported and signed by: Ronald Sofia MD CC: Nader Moreno MD; Carroll Harkins MD Technologist: SASHA Barboza Time: DAP (Gy m2): Air Kerma (mGy): Trscr Dt/Tm: 10/20/2023 (0204) by:[email or web address] Orig Print D/T: S: 10/20/2023 (020) BATCH NO:N/A Name: RICO MERLOS [facility] Phys: LYNN.Nirmala - Nader Moreno MD [address] [facility] : 2005 Age: 18 Sex: M [place], [place] [address] Loc: N.[phone] 1 Exam Date: 10/20/2023 Status: ADM IN PH: FAX: PAGE 1 Signed Report CREATINE KINASE (CK)2023-10-19 06:41:00* Test Item Value Reference Range Interpretation Comme nts CREATINE KINASE (CK) (test code = CK) 2649 U/L 0-243 HH Critical Value reported toFirst Name:DARLING Last Name:THEOBALDRESULTS READ BACK AND VERIFIEDby [id number], on 10/19/23, @ 0641. TROP-I HIGH [id number] 05:37:00* Test Item Value Reference Range Interpretation Comme nts TROP-I HIGH SENSITIVITY (test code = TROPIHS) 212 pg/mL 0-20 HH Critical Value r eported Nadeemirst Name:RICARDO Last Name:SYLVIAALBANDARULTS READ BACK AND VERIFIEDby [id number], on 10/19/23, @ 0537.99th Percentile Upper Reference Limit (URL):Females: 14 pg/mLMales: 20 pg/mL The demonstration of a rise or fall (over a 2hour period)of 5 pg/mL or greater may be clinically significant. A riseor fall of 20 pg/mL or greater is considered definitivelysignificant of possible acute myocardial injury. NOTE: Results from different methodologies should not becompared as quantitative results vary by method. BASIC METABOLIC [id number] 05:17:00* Test Item Value Reference Range Interpretation Comme nts SODIUM (test code = NA) 136 mmol/L 135-145 N POTASSIUM (test code = K) 3.9 mmol/L 3.6-5.0 N CHLORIDE (test code = CL) 102 mmol/L 101-111 N CARBON DIOXIDE (test code = CO2) 26 mmol/L 21-31 N GLUCOSE (test code = GLU) 128 mg/dl 70-100 H BLOOD UREA NITROGEN (test code = BUN) 8 mg/dl 6-20 N GLOMERULAR FILTRATION RATE (test code = GFR) >=60 max estimate >60 The Glomerular Filtration Rate is a calculated parameterbased on serum Creatinine, patient age and sex. GFR valuesless than 60 mL/min/1.73 square meters are indicative ofChronic Kidney Disease. Values less than 15 mL/min/1.73square meters indicate Kidney failure. The calculation forGFR is based on the CKD-EPI (2020) calculation. This formulais race indifferent and is the recommended formula for GFRby the National Kidney Foundation for Adults.The GFR will not calculate if the sex is unknown or if thepatient's age is <18 years. CREATININE (test code = CREAT) 0.93 mg/dL 0.64-1.27 N CALCIUM (test code = CA) 8.9 mg/dL 8.5-10.5 N INDEX HEMOLYSIS (test code = HEMINDEX) 1 Index/DL See_Comment [Automated messa ge] The system which generated this result transmitted reference range: 1 NORMAL. The reference range was not used to interpret this result as normal/abnormal. INDEX ICTERIC (test code = ICTINDEX) 2 Index/DL See_Comment [Automated messa ge] The system which generated this result transmitted reference range: 1 NORMAL. The reference range was not used to interpret this result as normal/abnormal. INDEX LIPEMIA (test code = LIPINDEX) 0 Index/DL See_Comment [Automated messa ge] The system which generated this result transmitted reference range: 1 NORMAL. The reference range was not used to interpret this result as normal/abnormal. [id number] 05:17:00* Test Item Value Reference Range Interpretation Comme nts PHOSPHOROUS (test code = PHOS) 2.2 mg/dl 2.5-4.6 L [id number] 05:17:00* Test Item Value Reference Range Interpretation Comme nts MAGNESIUM (test code = MAG) 1.9 mg/dl 1.8-2.5 N CBC W/AUTO [id number] 05:16:00* Test Item Value Reference Range Interpretation Comme nts WHITE BLOOD CELL (test code = WBC) 15.9 x10 3/uL 3.2-11.5 H RED BLOOD CELL (test code = RBC) 4.52 x10(6)/m 4.20-5.70 N HEMOGLOBIN (test code = HGB) 13.9 g/dL 12.9-17.3 N HEMATOCRIT (test code = HCT) 41.9 % 38.7-51.0 N MEAN CELL VOLUME (test code = MCV) 93 fL 80-100 N MEAN CELL HGB (test code = MCH) 30.8 pg 26.7-33.3 N MEAN CELL HGB CONCENTRATION (test code = MCHC) 33.2 g/dL 30.0-34.0 N RED CELL DISTRIBUTION WIDTH (test code = RDW) 13.1 % 11.3-14.5 N PLATELET COUNT (test code = PLT) 231 x10 3/uL 130-408 N MEAN PLATELET VOLUME (test c ode = MPV) 9.6 fL 8.6-12.6 N NEUTROPHIL % (test code = NT%) 77.4 % 40.0-70.0 H IMMATURE GRANULOCYTE % (test code = IG%) 0.6 % 0.0-2.0 N LYMPHOCYTE % (test code = LY%) 9.7 % 20-40 L MONOCYTE % (test code = MO%) 11.5 % 1-10 H EOSINOPHIL % (test code = EO%) 0.4 % 0.0-5.0 N BASOPHIL % (test code = BA%) 0.4 % 0.0-1.0 N NUCLEATED RBC % (test code = NRBC%) 0.0 % 0.0-0.9 N NEUTROPHIL # (test code = NT#) 12.3 x10 3/uL 1.6-7.2 H LYMPHOCYTE # (test code = LY#) 1.55 x10 3/uL 1.1-2.7 N MONOCYTE # (test code = MO#) 1.8 x10 3/uL 0.3-0.8 H EOSINOPHIL # (test code = EO#) 0.1 x10 3/uL 0.0-0.5 N BASOPHIL # (test code = BA#) 0.1 x10 3/uL 0.0-0.1 N - XR CHEST 1 [id number] 03:57:00 [facility] 2005 Sex: MPatient Name: RICO MERLOS Unit No: [id number] EXAMS: CPT: [id number] XR CHEST 1 V 16996 Portable chest, 10/19/2023. Clinical: Pneumothorax. Comment: The gastric and left thoracostomy tubes remain in place. There is a radiopaque Cristina drain within the left upper quadrant. There is a tiny left apical pneumothorax. There are bibasilar opacities and/or contusions primarily within the pulmonary bases. There is soft tissue emphysema within the left neck and along the midaxillary line. Regional skeleton appears stable. IMPRESSION: No significant change since 10/18/2023. at 0357 Reported and signed by: Ronald Sofia MD CC: Nader Moreno MD; Carroll Harkins MD Technologist: SASHA Barboza Time: DAP (Gy m2): Air Kerma (mGy): Trscr Dt/Tm: 10/19/2023 (035) by:[email or web address] Orig Print D/T: S: 10/19/2023 (0400) BATCH NO: N/A Name: RICO MERLOS [facility] Phys: LYNN. Nader Moreno MD [address] [facility] : 2005 Age: 18 Sex: M [place], [place] [address] Loc: N.[phone] 1 Exam Date: 10/19/2023 Status: ADM IN PH: FAX: PAGE 1 Signed ReportHGB [id number] 19:40:00* Test Item Value Reference Range Interpretation Comme nts HEMOGLOBIN (test code = HGB) 13.7 g/dL 12.9-17.3 N HEMATOCRIT (test code = HCT) 40.1 % 38.7-51.0 N - CTA CHEST FOR [id number] 14:30:00 [facility] 2005 Sex: MPatient Name: RICO MERLOS Unit No: [id number] EXAMS: CPT: [id number] [place] [address] EXAM: - CTA CHEST FOR PE 10/18/2023 2:11 PM CLINICAL INFORMATION: Hypoxia. Trauma. TECHNIQUE: Helical CT of the chest was performed after the administration of intravenous contrast. Axial, coronal and sagittal reformatted images were reviewed. MIP images were provided. ASIR (Adaptive Statistical Iterative Reconstruction) technique was used. One or more of the following dose reduction techniques were utilized:automated exposure control, use of iterative reconstruction technique and adjustment of the mA and/or kV according to patient size. COMPARISON: None FINDINGS: Vasculature: Aorta: Common origin of the brachiocephalic and left common carotid arteries, representing anatomic variant. Pulmonary artery:Normal in caliber. No filling defect to the segmental level. Other: Enteric tube terminates in the second portion of the duodenum. Heart/coronary vessels/pericardium: Heart: Normal in size. No right heart strain. Coronary arteries: Calcific atherosclerosis cannot be optimally assessed on this exam.Pericardium: No significant effusion or thickening. Visualized neck: No significant abnormality. Mediastinum: Small degree of pneumomediastinum, decreased. Lymph nodes: Normal in size. Esophagus: No s ignificant abnormality. Trachea/central airways: Secretions in the proximal trachea at the level ofthe thoracic inlet (series 3 image 23). The distal trachea and central airways are patent. Lungs: There are subpleural consolidative opacities in the left upper lobe on series 3 image 36 measuring up to 2.1 cm on series image 36. Additional areas of volume loss in the apical posterior segment of the left upper lobe on series image 48, in the inferior lingular segment on series 3 image 78 and subsegmental atelectasis in the left lung base may represent a combination of atelectasis and/or contusion. Small amount of volume loss in the right lung base, likely atelectasis. Pleura/diaphragm: Pneumothorax in the left lung apex, and along the lateral and medial pleura, overall decreased from exam of 10/17/2023 and occupying less than 10% of the hemithorax. Left-sided chest tube in place. Trace bilateral pleural effusions. Visualized abdomen: Left superior pole renal laceration, similar in appearance. There is small degree of left perinephric fluid with dependent hyperdensity, likely hematoma. Diffuse hepatic steatosis. Name: RICO MERLOS [facility] Phys: THOMASALEKSEY Ying TruongDalilanish Phelps [facility] : 2005 Age: 18 Sex: M [place] [id number] Loc: N.0703 1 Exam Date: 10/18/2023 Status: ADM IN PH: FAX: PAGE 1 Signed Report (CONTINUED) Patient Name: RICO MERLOS Unit No: [id number] EXAMS: CPT: [id number] [place] [address] (Continued) Likely vicarious excretion of contrast within the gallbladder. Status post anatomy with percutaneous drain in place. Decrease in left upper quadrant fluid with a small amount of gas located within the fluid collection (series 5 image 101, likely postsurgical. Trace pneumoperitoneum anteriorly. Skeleton: Nondisplaced fracture of the left anterior second rib. Displaced fracture of the right lateral fifth rib,which projects into the lingula. Displaced fractures of the left posterior sixth, seventh, eighth, ninth and 10th ribs. Soft tissues/other: Decrease in the subcutaneous air along the left lateral chest. Limitations: Respiratory motion degrades evaluation. IMPRESSION: Decrease in the degree of pneumothorax, pneumo mediastinum and subcutaneous air. Left-sided chest tube in place. Pulmonary contusions and volume loss with trace bilateral pleural effusions, as above. 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 Small foci of gas, likely postoperative. Left superior renal pole laceration with small amount of perinephric fluid and hemorrhage, not signific antly changed. Rib fractures as above. Additional incidental findings as above. at 1430 Reported and signed by: Catherine Rob MD CC: Dalila Truong; Carroll Harkins MD Technologist: Maria Teresa Means CTDI: 18.09 DLP: 728.71 TrscrDt/Tm: 10/18/2023 (1430) by:[email or web address] Orig Print D/T: S: 10/18/2023 (1433) BATCH NO: N/A Name: RICO MERLOS [facility] Phys: SELENA He DionneDalilanish [facility]helps [place] [place] : 2005 Age: 18 Sex: M [place], [place] [address] Loc: N.0703 1 Exam Date: 10/18/2023 Status: ADM IN PH: FAX: PAGE 2 Signed Report TROP-I HIGH [id number] 12:58:00* Test Item Value Reference Range Interpretation Comme nts TROP-I HIGH SENSITIVITY (test code = TROPIHS) 398 pg/mL 0-20 HH PREVIOUSLY CANTRELL D.99th Percentile Upper Reference Limit (URL):Females: 14 pg/mLMales: 20 pg/mL The demonstration of a rise or fall (over a 2hour period)of 5 pg/mL or greater may be clinically significant. A riseor fall of 20 pg/mL or greater is considered definitivelysignificant of possible acute myocardial injury. NOTE: Results from different methodologies should not becompared as quantitative results vary by method. HGB [id number] 12:16:00* Test Item Value Reference Range Interpretation Comme nts HEMOGLOBIN (test code = HGB) 13.9 g/dL 12.9-17.3 N HEMATOCRIT (test code = HCT) 40.7 % 38.7-51.0 N TROP-I HIGH [id number] 11:59:00* Test Item Value Reference Range Interpretation Comme nts TROP-I HIGH SENSITIVITY (test code = TROPIHS) 292 pg/mL 0-20 HH PREVIOUSLY CANTRELL D.99th Percentile Upper Reference Limit (URL):Females: 14 pg/mLMales: 20 pg/mL The demonstration of a rise or fall (over a 2hour period)of 5 pg/mL or greater may be clinically significant. A riseor fall of 20 pg/mL or greater is considered definitivelysignificant of possible acute myocardial injury. NOTE: Results from different methodologies should not becompared as quantitative results vary by method. - XR CHEST 1 [id number] 11:41:00 [facility] 2005 Sex: MPatient Name: RICO MERLOS Unit No: [id number] EXAMS: CPT: [id number] XR CHEST 1 V 66140 EXAM: SINGLE VIEW OF THE CHEST HISTORY: Shortness of breath. COMPARISON: X-ray 10/18/2023 at 6:44 hours. FINDINGS: Lines/tubes: Stable positioning of the chest tubes projecting over the left lower chest wall. The enteric tube is again seen coursing centrally and passing below the diaphragm. Lungs/Pleura: Faint perih ilar interstitial opacities. Mild prominence of the pulmonary vessels. Suggestion of a trace left apical pneumothorax.. Heart/mediastinum: Cardiomediastinal silhouette is within normal limits. Bones/soft tissues: Subcutaneous emphysema projects over the left axilla and left lower chest wall. Redemonstrated mildly displaced, known left-sided rib fractures. IMPRESSION: Stable positioning of left-sided chest tubes with persistent trace left apical pneumothorax. at 1141 Reported and signed by: Aramis Corrales DO CC: Nader Moreno MD; Lamont CABRERA Technologist: ZOHAIB Barboza Time: DAP (Gy m2): Air Kerma (mGy): Trscr Dt/Tm: 10/18/2023 (1141) by:[email or web address] Orig Print D/T: S: 10/18/2023 (1144) BATCH NO: N/A Name: RICO MERLOS [facility] Phys: LYNN. Nader Moreno MD [address] [facility] : 2005 Age: 18 Sex: M [place], [place] [address] Loc: N.0703 1 Exam Date: 10/18/2023 Status: ADM IN PH: FAX: PAGE1 Signed Report- XR CHEST 1 [id number] 07:05:00 [facility] 2005 Sex: MPatient Name: RICO MERLOS Unit No: [id number] EXAMS: CPT: [id number] XR CHEST 1 V 23372 EXAM: XR CHEST 1VIEW DATE: 10/18/2023 6:21 AM INDICATION: Correction COMPARISON: Chest radiograph on 10/18/2023 TECHNIQUE: AP chest. FINDINGS: Lines, tubes and hardware: There is redemonstration of the enteric suction tube, left upper quadrant abdominal drain, midline abdominal sutures, and left chest tube. Lungs and pleura: A trace less than 10% left apical pneumothorax is again seen, unchanged from the prior radiograph. The patient's known bilateral pulmonary contusions are better seen on the chest radiograph on 10/17/2023. No pleural effusion is seen. No right-sided pneumothorax is identified. Heart and me diastinum: The heart size is normal. The mediastinal contours are normal. Bones and soft tissues: No acute bony abnormality is seen. The patient's known left- sided rib fractures are better seen on the comparison CT chests. There is redemonstration of soft tissue emphysema and the left supraclavicular soft tissues and in the left chest. IMPRESSION: No significant change from prior same day chest radiograph, with stable trace less than 10% left apical pneumothorax. at 0705 Reported and signed by: Farhad Mcbride MD CC: Jaye Becerra MD; Carroll Harkins MD Technologist: Kitty Barboza Time: DAP (Gy m2): Air Kerma (mGy): Trscr Dt/Tm: 10/18/2023 (0705) by:[email or web address] Orig Print D/T: S: 10/18/2023 (0709) BATCH NO: N/A Name: RICO MERLOS [facility] Phys: NEENAST.Stephany - Jaye Becerra [address] : 2005 Age: 18 Sex: M [place], [place] [address] Loc: N.0703 1 Exam Date: 10/18/2023 Status: ADM IN PH: FAX: PAGE 1 Signed ReportCALCIUM [id number] 04:50:00* Test Item Value Reference Range Interpretation Comme nts CALCIUM IONIZED (test code = ROCHELLE) 1.23 mmol/L 1.13-1.32 N CBC W/AUTO [id number] 04:36:00* Test Item Value Reference Range Interpretation Comme nts WHITE BLOOD CELL (test code = WBC) 13.3 x10 3/uL 3.2-11.5 H RED BLOOD CELL (test code = RBC) 4.30 x10(6)/m 4.20-5.70 N HEMOGLOBIN (test code = HGB) 13.5 g/dL 12.9-17.3 N HEMATOCRIT (test code = HCT) 39.5 % 38.7-51.0 N MEAN CELL VOLUME (test code = MCV) 92 fL 80-100 N MEAN CELL HGB (test code = MCH) 31.4 pg 26.7-33.3 N MEAN CELL HGB CONCENTRATION (test code = MCHC) 34.2 g/dL 30.0-34.0 H RED CELL DISTRIBUTION WIDTH (test code = RDW) 13.5 % 11.3-14.5 N PLATELET COUNT (test code = PLT) 198 x10 3/uL 130-408 N MEAN PLATELET VOLUME (test c ode = MPV) 9.6 fL 8.6-12.6 N NEUTROPHIL % (test code = NT%) 73.9 % 40.0-70.0 H IMMATURE GRANULOCYTE % (test code = IG%) 0.3 % 0.0-2.0 N LYMPHOCYTE % (test code = LY%) 13.6 % 20-40 L MONOCYTE % (test code = MO%) 11.4 % 1-10 H EOSINOPHIL % (test code = EO%) 0.4 % 0.0-5.0 N BASOPHIL % (test code = BA%) 0.4 % 0.0-1.0 N NUCLEATED RBC % (test code = NRBC%) 0.0 % 0.0-0.9 N NEUTROPHIL # (test code = NT#) 9.8 x10 3/uL 1.6-7.2 H LYMPHOCYTE # (test code = LY#) 1.81 x10 3/uL 1.1-2.7 N MONOCYTE # (test code = MO#) 1.5 x10 3/uL 0.3-0.8 H EOSINOPHIL # (test code = EO#) 0.1 x10 3/uL 0.0-0.5 N BASOPHIL # (test code = BA#) 0.1 x10 3/uL 0.0-0.1 N BASIC METABOLIC [id number] 04:27:00* Test Item Value Reference Range Interpretation Comme nts SODIUM (test code = NA) 136 mmol/L 135-145 N POTASSIUM (test code = K) 3.8 mmol/L 3.6-5.0 N CHLORIDE (test code = CL) 105 mmol/L 101-111 N CARBON DIOXIDE (test code = CO2) 27 mmol/L 21-31 N GLUCOSE (test code = GLU) 118 mg/dl 70-100 H BLOOD UREA NITROGEN (test code = BUN) 13 mg/dl 6-20 N GLOMERULAR FILTRATION RATE (test code = GFR) >=60 max estimate >60 The Glomerular Filtration Rate is a calculated parameterbased on serum Creatinine, patient age and sex. GFR valuesless than 60 mL/min/1.73 square meters are indicative ofChronic Kidney Disease. Values less than 15 mL/min/1.73square meters indicate Kidney failure. The calculation forGFR is based on the CKD-EPI (202) calculation. This formulais race indifferent and is the recommended formula for GFRby the National Kidney Foundation for Adults.The GFR will not calculate if the sex is unknown or if thepatient's age is <18 years. CREATININE (test code = CREAT) 1.09 mg/dL 0.64-1.27 N CALCIUM (test code = CA) 8.5 mg/dL 8.5-10.5 N INDEX HEMOLYSIS (test code = HEMINDEX) 1 Index/DL See_Comment [Automated messa ge] The system which generated this result transmitted reference range: 1 NORMAL. The reference range was not used to interpret this result as normal/abnormal. INDEX ICTERIC (test code = ICTINDEX) 2 Index/DL See_Comment [Automated [employer]] The system which generated this result transmitted reference range: 1 NORMAL. The reference range was not used to interpret this result as normal/abnormal. INDEX LIPEMIA (test code = LIPINDEX) 0 Index/DL See_Comment [Automated [employer]] The system which generated this result transmitted reference range: 1 NORMAL. The reference range was not used to interpret this result as normal/abnormal. Comments to Phleb: Repeat Serum K level in AM if not already ordered.PHOSPHOROUS 2023-10-18 04:27:00* Test Item Value Reference Range Interpretation Comme nts PHOSPHOROUS (test code = PHOS) 2.6 mg/dl 2.5-4.6 N Comments to Phleb: Repeat Serum K level in AM if not already ordered.MAGNESIUM 2023-10-18 04:27:00* Test Item Value Reference Range Interpretation Comme nts MAGNESIUM (test code = MAG) 1.8 mg/dl 1.8-2.5 N Comments to Phleb: Repeat Serum K level in AM if not already ordered.- XR CHEST 1 [id number] 03:28:00 [facility] 2005 Sex: MPatient Name: RICO MERLOS Unit No: [id number] EXAMS: CPT: [id number] XR CHEST 1 V 35906 Portable chest, 10/18/2023. Clinical: Chest tube. Comment: The gastric and left thoracostomy tubes remain in place. There is a small left pneumothorax. There are bilateral diffuse pulmonary opacities and/or contusions. There is soft tissue emphysema within the left neck and along the midaxillary line. The regional skeleton appears stable. There is a [place] drain overlying the left upper quadrant. IMPRESSION: Increasing opacification of the hemithoraces since 10/17/2023. at 0328 Reported and signed by: Ronald Sofia MD CC: Nader Moreno MD; Carroll Harkins MD Technologist: Russ Potter Fluoro Time: DAP (Gy m2): Air Kerma (mGy): Trscr Dt/Tm: 10/18/2023 (327) by:[email or web address] Orig Print D/T: S: 10/18/2023 (033) BATCH NO: N/A Name: RICO MERLOS [facility] Phys: LYNN. Nader Moreno MD [address] [facility] : 2005 Age: 18 Sex: M [place] [address] Loc: N.0703 1 Exam Date: 10/18/2023 Status: ADM IN PH: FAX: PAGE 1 Signed ReportLACTIC [id number] 21:02:00* Test Item Value Reference Range Interpretation Comme nts LACTIC ACID (test code = LACT) 2.0 mmol/L 0.5-2.0 N [id number] 20:46:00* Test Item Value Reference Range Interpretation Comme nts HEMOGLOBIN (test code = HGB) 14.2 g/dL 12.9-17.3 N LACTIC [id number] 16:33:00* Test Item Value Reference Range Interpretation Comme nts LACTIC ACID (test code = LACT) 2.2 mmol/L 0.5-2.0 HH Critical Value r eported toFirst Name:SAMY Mckeon Name:ZUNILDA MESA READ BACK AND VERIFIEDby [id number], on 10/17/23, @ 1633. [id number] 15:58:00* Test Item Value Reference Range Interpretation Comme nts HEMOGLOBIN (test code = HGB) 14.3 g/dL 12.9-17.3 N TROP-I HIGH [id number] 14:36:00* Test Item Value Reference Range Interpretation Comme nts TROP-I HIGH SENSITIVITY (test code = TROPIHS) 234 pg/mL 0-20 HH Critical Value r eported toFirst Name:SAMY Last Name:MADDISON READ BACK AND VERIFIEDby N.LAB.IBT, on 10/17/23, @ 1436.99th Percentile Upper Reference Limit (URL):Females: 14 pg/mLMales: 20 pg/mL The demonstration of a rise or fall (over a 2hour period)of 5 pg/mL or greater may be clinically significant. A riseor fall of 20 pg/mL or greater is considered definitivelysignificant of possible acute myocardial injury. NOTE: Results from different methodologies should not becompared as quantitative results vary by method. LACTIC [id number] 14:11:00* Test Item Value Reference Range Interpretation Comme nts LACTIC ACID (test code = LACT) 2.4 mmol/L 0.5-2.0 HH Critical Value r eported toFirst Name:SAMY Last Name:MADDISON READ BACK AND VERIFIEDby N.LAB.IBT, on 10/17/23, @ 1411. - XR ABDOMEN [id number] 10:22:00 [facility] 2005 Sex: MPatient Name: RICO MERLOS Unit No: [id number] EXAMS: CPT: [id number] XR ABDOMEN 1V 53707 ABDOMEN RADIOGRAPH, 1 VIEW: Supine. HISTORY: NGT PLACEMENT FINDINGS: Tip of the NG tube is in the stomach. Left lateral abdominal wall emphysematous changes. Left upper quadrant drains. at 1022 Reported and signed by: Kiya Zaman MD CC: Nader Moreno MD; Carroll Harkins MD Technologist: Neha Barboza Time: DAP (Gy m2): Air Kerma (mGy): Trscr Dt/Tm: 10/17/2023 (1022) by:[email or web address] Orig Print D/T: S: 10/17/2023 (1025) BATCH NO: N/A Name: RICO MERLOS [facility] Phys: LYNN.03 - Nader Moreno MD [address] : 2005 Age: 18 Sex: M [place], [place] [address] Loc: N.0703 1 Exam Date: 10/17/2023 Status: ADM IN PH: FAX: PAGE 1 Signed ReportLACTIC [id number] 09:15:00* Test Item Value Reference Range Interpretation Comme nts LACTIC ACID (test code = LACT) 2.1 mmol/L 0.5-2.0 HH Critical Value r eported toFirst Name:SAMY Last Name:MADDISON READ BACK AND VERIFIEDby N.LAB.IBT, on 10/17/23, @ 0915. DRUGS OF ABUSE SCREEN [id number] 09:06:00* Test Item Value Reference Range Interpretation Comme nts UR COCAINE (test code = COCAU) NEGATIVE NEGATIVE This is a toxico logy qualitative screening test only, whichmay detect parent compound or metabolite or relatedsubstance. If confirmatory testing is desired, pleaserequest drug screen confirmation. These results are unconfirmed and should be used only for medical purposes.Unconfirmed screening results must not be used fornon-medical purposes (ex-employment testing). Cut-off concentration for Cocaine is 300 ng/mLRecommended screening cut-off concentrations by the[facility] Abuse and Mental Health Services Administration. UR CANABINOIDS (test code = CANU) NEGATIVE NEGATIVE This is a toxico logy qualitative screening test only whichmay detect parent compound or metabolite or relatedsubstance. If confirmatory testing is desired, pleaserequest drug screen confirmation. These results areunconfirmed and should be used only for medical purposes.Unconfirmed screening results must not be used fornon-medical purposes (ex-employment testing). Cut-off concentration for THC is 50 ng/mLRecommended screening cut-off concentrations by theSubstance Abuse and Mental Health Services Administration. UR AMPHETAMINE (test code = AMPHU) NEGATIVE NEGATIVE The ingestion of natural herbal and plant productscontaining Ephedra/Ephedra-Metabolit es can produce in urineone or more substances capable of cross-reacting withAmphetamine/Methamphe tamine immunoassays. This testprovides a preliminary result only. A more specificalternative chemical method must be used to obtain aconfirmed analytical result. This is a toxicology qualitative screening test only whichmay detect parent compound or metabolite or relatedsubstance. If confirmatory testing is desired, pleaserequest drug screen confirmation. These results areunconfirmed and should be used only for medical purposes.Unconfirmed screening results must not be used fornon-medical purposes (ex-employment testing). Cut-off concentration for Amphetamines is 1000 ng/mLRecommended screening cut-off concentrations by theSubstance Abuse and Mental Health Services Administration. UR BARBITURATE (test code = BARBQLU) NEGATIVE NEGATIVE This is a toxico logy qualitative screening test only whichmay detect parent compound or metabolite or relatedsubstance. If confirmatory testing is desired, pleaserequest drug screen confirmation. These results areunconfirmed and should be used only for medical purposes.Unconfirmed screening results must not be used fornon-medical purposes (ex-employment testing). Cut-off concentration for Barbiturates is 200 ng/mLRecommended screening cut-off concentrations by theSubstance Abuse and Mental Health Services Administration. UR BENZODIAZEPINE (test code = BENZU) NEGATIVE NEGATIVE This is a to xicology qualitative screening test only whichmay detect parent compound or metabolite or relatedsubstance. If confirmatory testing is desired, pleaserequest drug screen confirmation. These results areunconfirmed and should be used only for medical purposes.Unconfirmed screening results must not be used fornon-medical purposes (ex-employment testing). Cut-off concentration for Benzodiazepines is 200 ng/mLRecommended screening cut-off concentrations by theSubstance Abuse and Mental Health Services Administration. UR OPIATES QUAL (test code = OPIAQLU) NEGATIVE NEGATIVE This is a toxico logy qualitative screening test only whichmay detect parent compound or metabolite or relatedsubstance. If confirmatory testing is desired, pleaserequest drug screen confirmation. These results areunconfirmed and should be used only for medical purposes.Unconfirmed screening results must not be used fornon-medical purposes (ex-employment testing). Cut-off concentration for Opiates is 300 ng/mLRecommended screening cut-off concentrations by the[facility] Abuse and Mental Health Services Administration. UR PHENCYCLIDINE (PCP) (test code = PHENCU) NEGATIVE NEGATIVE This is a toxico logy qualitative screening test only whichmay detect parent compound or metabolite or relatedsubstance. If confirmatory testing is desired, pleaserequest drug screen confirmation. These results areunconfirmed and should be used only for medical purposes.Unconfirmed screening results must not be used fornon-medical purposes (ex-employment testing). Cut-off concentration for PCP is 25 ng/mLRecommended screening cut-off concentrations by theS[facility] Abuse and Mental Health Services Administration. WHAT DRUGS HAVE BEEN TAKEN? FENTANYL [id number] 08:54:00* Test Item Value Reference Range Interpretation Comme nts HEMOGLOBIN (test code = HGB) 14.6 g/dL 12.9-17.3 N UA RFLX MICR CULT IF [id number] 08:54:00* Test Item Value Reference Range Interpretation Comme nts UA COLOR (test code = COLU) YELLOW YELLOW UA APPEARANCE (test code = APPU) HAZY CLEAR UA GLUCOSE DIPSTICK (test co de = DGLUU) NEGATIVE NEGATIVE UA BILIRUBIN DIPSTICK (test code = BILU) NEGATIVE NEGATIVE UA KETONE DIPSTICK (test cod e = KETU) NEGATIVE NEGATIVE UA SPECIFIC GRAVITY (test co de = SGU) 1.055 1.001-1.030 UA BLOOD DIPSTICK (test code = SONG) 3+ NEGATIVE UA PH DIPSTICK (test code = JACKY) 5.0 5.0-9.0 UA PROTEIN DIPSTICK (test co de = PROU) 2+ NEGATIVE A UA UROBILINOGEN DIPSTICK (te st code = URO) NEGATIVE <=1.0 UA NITRITE DIPSTICK (test co de = MARISSA) NEGATIVE NEGATIVE UA ASCORBIC ACID DIPSTICK (t est code = AAU) NEGATIVE UA LEUKOCYTE ESTERASE DIPSTI CK (test code = LEUU) NEGATIVE NEGATIVE UA WBC (test code = WBCUR) 0-5 /HPF 0-5 UA RBC (test code = RBCU) TNTC /HPF 0-5 A UA EPITHELIAL CELLS (test co de = EPIU) None /LPF NONE-FEW UA BACTERIA (test code = BACU) None /HPF NONE SEEN UA MUCUS (test code = MUCU) 1+ /LPF NONE SEEN Indication for culture: RiskForSepsis-no oth srcSpecimen Description: PRIEST CATHETERIZED URINELACTIC [id number] 07:01:00* Test Item Value Reference Range Interpretation Comme nts LACTIC ACID (test code = LACT) 3.2 mmol/L 0.5-2.0 HH Critical Value r eported toFirst Name:KENTRELL Last Name:COLONRESULTS READ BACK AND VERIFIEDby [id number], on 10/17/23, @ [facility]. CALCIUM [id number] 06:56:00* Test Item Value Reference Range Interpretation Comme nts CALCIUM IONIZED (test code = ROCHELLE) 1.21 mmol/L 1.13-1.32 N BASIC METABOLIC [id number] 06:55:00* Test Item Value Reference Range Interpretation Comme nts SODIUM (test code = NA) 139 mmol/L 135-145 N POTASSIUM (test code = K) 4.0 mmol/L 3.6-5.0 N CHLORIDE (test code = CL) 109 mmol/L 101-111 N CARBON DIOXIDE (test code = CO2) 19 mmol/L 21-31 L GLUCOSE (test code = GLU) 175 mg/dl 70-100 H BLOOD UREA NITROGEN (test code = BUN) 17 mg/dl 6-20 N GLOMERULAR FILTRATION RATE (test code = GFR) >=60 max estimate >60 The Glomerular Filtration Rate is a calculated parameterbased on serum Creatinine, patient age and sex. GFR valuesless than 60 mL/min/1.73 square meters are indicative ofChronic Kidney Disease. Values less than 15 mL/min/1.73square meters indicate Kidney failure. The calculation forGFR is based on the CKD-EPI (2020) calculation. This formulais race indifferent and is the recommended formula for GFRby the National Kidney Foundation for Adults.The GFR will not calculate if the sex is unknown or if thepatient's age is <18 years. CREATININE (test code = CREAT) 1.37 mg/dL 0.64-1.27 H CALCIUM (test code = CA) 8.3 mg/dL 8.5-10.5 L INDEX HEMOLYSIS (test code = HEMINDEX) 0 Index/DL See_Comment [Automated messa ge] The system which generated this result transmitted reference range: 1 NORMAL. The reference range was not used to interpret this result as normal/abnormal. INDEX ICTERIC (test code = ICTINDEX) 1 Index/DL See_Comment [Automated messa ge] The system which generated this result transmitted reference range: 1 NORMAL. The reference range was not used to interpret this result as normal/abnormal. INDEX LIPEMIA (test code = LIPINDEX) 0 Index/DL See_Comment [Automated messa ge] The system which generated this result transmitted reference range: 1 NORMAL. The reference range was not used to interpret this result as normal/abnormal. [id number] 06:55:00* Test Item Value Reference Range Interpretation Comme nts PHOSPHOROUS (test code = PHOS) 2.9 mg/dl 2.5-4.6 N [id number] 06:55:00* Test Item Value Reference Range Interpretation Comme nts MAGNESIUM (test code = MAG) 2.0 mg/dl 1.8-2.5 N CBC W/AUTO [id number] 06:50:00* Test Item Value Reference Range Interpretation Comme nts WHITE BLOOD CELL (test code = WBC) 15.2 x10 3/uL 3.2-11.5 H RED BLOOD CELL (test code = RBC) 4.56 x10(6)/m 4.20-5.70 N HEMOGLOBIN (test code = HGB) 14.1 g/dL 12.9-17.3 N HEMATOCRIT (test code = HCT) 41.6 % 38.7-51.0 N MEAN CELL VOLUME (test code = MCV) 91 fL 80-100 N MEAN CELL HGB (test code = MCH) 30.9 pg 26.7-33.3 N MEAN CELL HGB CONCENTRATION (test code = MCHC) 33.9 g/dL 30.0-34.0 N RED CELL DISTRIBUTION WIDTH (test code = RDW) 12.8 % 11.3-14.5 N PLATELET COUNT (test code = PLT) 208 x10 3/uL 130-408 N MEAN PLATELET VOLUME (test c ode = MPV) 9.7 fL 8.6-12.6 N NEUTROPHIL % (test code = NT%) 84.8 % 40.0-70.0 H IMMATURE GRANULOCYTE % (test code = IG%) 0.5 % 0.0-2.0 N LYMPHOCYTE % (test code = LY%) 6.7 % 20-40 L MONOCYTE % (test code = MO%) 7.8 % 1-10 N EOSINOPHIL % (test code = EO%) 0.0 % 0.0-5.0 N BASOPHIL % (test code = BA%) 0.2 % 0.0-1.0 N NUCLEATED RBC % (test code = NRBC%) 0.0 % 0.0-0.9 N NEUTROPHIL # (test code = NT#) 12.9 x10 3/uL 1.6-7.2 H LYMPHOCYTE # (test code = LY#) 1.02 x10 3/uL 1.1-2.7 L MONOCYTE # (test code = MO#) 1.2 x10 3/uL 0.3-0.8 H EOSINOPHIL # (test code = EO#) 0.0 x10 3/uL 0.0-0.5 N BASOPHIL # (test code = BA#) 0.0 x10 3/uL 0.0-0.1 N ARTERIAL BLOOD [id number] 06:42:00* Test Item Value Reference Range Interpretation Comme nts ARTERIAL BLOOD GAS PH (test code = PHA) 7.254 7.350-7.450 L ARTERIAL BLOOD GAS PCO2 (test code = PCO2A) 42.2 mmHg 35-45 N ARTERIAL BLOOD GAS PO2 (test code = PO2A) 274.9 mmHg 75-100 H BICARBONATE TOTAL HCO3 (test code = HCO3) 18.3 mmol/L 22-26 L BASE EXCESS (test code = INGRID) -8.5 mmol/L See_Comment L [Automated messa ge] The system which generated this result transmitted reference range: (+/-)2.0. The reference range was not used to interpret this result as normal/abnormal. ABG O2 SATURATION (test code = SATA) 99.0 % 95.0-100.0 N ABG TYPE (test code = TYPEA) Arterial ARTERIAL FIO2 (test code = FIO2A) 60.0 % ABG VENT MODE (test code = MODEA) PRVC ABG SITE (test code = SITEA) A-Line ALLENS TEST (test code = ALLENS) NOT APPLICAPLE TOTAL HGB (test code = THB) 15.1 g/dL 12.0-18.0 N - XR CHEST 1 [id number] 06:20:00 [facility] 2005 Sex: MPatient Name: RICO MERLOS Unit No: [id number] EXAMS: CPT: [id number] XR CHEST 1 V 94384 Portable chest, 10/17/2023, 0610 hours. COMPARISON: 10/17/2023, 0308 hours. Clinical: Trauma. Comment: The airway tube tip overlies the tracheal air shadow at the level of the arch. There is soft tissue emphysema primarily to the left of midline. There is a small left pneumothorax. There is a left thoracostomy tube. There bilateral pulmonary contusions, left greater than right. The regional skeleton appears stable. IMPRESSION: Status post intubation. Interval insertion of a left thoracostomy tube. Small left pneumothorax. at 0620 Reported and signed by: Ronald Sofia MD CC: Carroll Harkins MD Technologist: NATHEN Barboza Time: DAP (Gy m2): Air Kerma (mGy): Trscr Dt/Tm: 10/17/2023 (0620) by:[email or web address] Orig Print D/T: S: 10/17/2023 (0623) BATCH NO: N/A Name: RICO MERLOS [facility] Phys: Carroll Watson MD [address] : 2005 Age: 18 Sex: M [place], [place] [address] Loc: N.0703 1 Exam Date: 10/17/2023Status: ADM IN PH: FAX: PAGE 1 Signed Report- XR ABDOMEN [id number] 05:22:00[facility] 2005 Sex: MPatient Name: RICO MERLOS Unit No: [id number] EXAMS: CPT: [id number] XR ABDOMEN 1V 82605 Abdomen, one view, 10/17/2023. Clinical: Postop for counts. Comment: The gastric tube tip overlies the body of the stomach. There is a radiopaque Cristina drain within the left upper quadrant. There is a Priest catheter within the bladder lumen. There is a rectal temperature probe. No radiopaque foreign body is detec juhi. There is no hepatomegaly. The regional skeleton appears intact. The trauma surgeon was notified of the above on 10/17/2023, 0522 hours. IMPRESSION: No radiopaque foreign body detected. at 0522 Reported and signed by: Ronald [facility]iaFIRELANDS [facility]: Carroll Harkins MD Technologist: NATHEN Barboza Time: DAP (Gy m2): Air Kerma (mGy): Trscr Dt/T m: 10/17/2023 (0522) by:[email or web address] Orig Print D/T: S: 10/17/2023 (0526) BATCH NO: N/A Name: RICO MERLOS [facility] Phys: Carroll Watson MD [address] : 2005 Age: 18 Sex: [place] [address] Loc: NJODIEI 10 Exam Date: 10/17/2023 Status: ADM IN PH: FAX: PAGE 1 Signed [facility] ART[facility] BLOOD [id number] 05:19:00* Test Item Value Reference Range Interpretation Comme nts POC ARTERIAL BLOOD GAS PH (test code = POCPHA) 7.320 7.35-7.45 L POC ARTERIAL BLOOD GAS PCO2 (test code = IXXYHM8T) 34.8 mmol/L 35-48 L POC ARTERIAL BLOOD GAS PO2 (test code = PVWFP4Y) 512.7 mmHg 83-108 H POC HCO3 ARTERIAL (test code = OYULXY5F) 18.1 mmol/L 21.0-28.0 L POC BASE EXCESS (test code = POCBEA) -7.5 mmol/L -2.0-3.0 L POC O2 SATURATION (test code = POCO2S) 100.0 % 94-98 H ABG TEMPERATURE (test code = TEMPA) 36.0 C SODIUM (POC) (test code = NA/ABG) 141 mmol/L 137-145 N POTASSIUM (POC) (test code = K/ABG) 4.3 mmol/L 3.4-4.5 N CHLORIDE (ARTERIAL) (test code = CL/ABG) 108 mmol/L 98-107 H GLUCOSE (test code = GLU/ABG) 148 mg/dL 74-100 H HEMOGLOBIN (ARTERIAL) (test code = HGB/ABG) 14.0 g/dL 14.0-17.0 N HEMATOCRIT (POC) (test code = HCT/ABG) 41 % 38-51 N POC IONIZED CALCIUM (test code = POCCA) 1.15 mmol/L 1.15-1.33 N POC SAMPLE SOURCE (test code = POCSAMPLE) Arterial Descript Specimen CREATININE POC (test code = CREATP) 1.20 mg/dL 0.51-1.19 H LACTIC ACID POC (test code = LACTP) 4.36 mmol/L 0.36-0.75 Testing perf ormed at:[facility], [place] [address] - CT ANGIO [id number] 05:01:00 [facility] 2005 Sex: MPatient Name: RICO MERLOS Unit No: [id number] Report Has Been Amended EXAMS: CPT: [id number] CT ANGIO NECK [address]1493 Addendum - 10/17/2023 SIGNED 10/17/2023 ADDENDUM: [id number] CT/[id number] Addendum: 10/17/2023, 0500 hours. Transaxial plus sagittal/coronal/oblique/3-D/curved reformats/MIP images wereobtained following IV contrast administration. Following review of recently submitted images, no additional comments are provided. at 0501 Reported and signed by: Ronald Sofia MD Transcribed: 10/17/2023 (0501) [email or web address] Report CTA neck,10/17/2023. Clinical: Trauma. Comment: Transaxial plus sagittal/coronal reformatted images were obtained following IV contrast administration. The aortic arch is patent. The brachiocephalic vessels within the superior mediastinum are patent. Bilateral common carotid arteries are patent without critical stenosis or dissection. Bilateral internal carotid arteries are patent without critical stenosis or dissection. Bilateral vertebral arteries are patent without critical stenosis or dissection. The jugular veins are opacified. CT imaging was performed using iterative reconstruction techniques and/or automated exposure control to reduce radiation dose. IMPRESSION: No acute enhancing abnormalities detected. at 0339 Reported and signed by: Ronald Sofia MD Name: RICO MERLOS [facility] ED Phys: ALIKat Bashir MD [address] [facility] : 2005 Age: 18 Sex: [place] [address] Loc: N.ERSI 10 Exam Date: 10/17/2023 Status: ADM IN PH: FAX: PAGE 1 Signed Report (CONTINUED) Patient Name: RICO MERLOS Unit No: [id number] Report Has Been Amended EXAMS: CPT: [id number] CT ANGIO NECK [address] (Continued) CC: Kat Rodriguez MD Technologist: CHRISSY Haney CTDI: DLP: [facility] [email or web address] Dt/Tm: 10/17/2023 (033) by:[email or web address] Orig Print D/T: S: 10/17/2023 (034) BATCH NO: N/A Name: RICO MERLOS [facility] ED Phys: ALIALESSIO.Kat Buckley MD [address] [facility] : 2005 Age: 18 Sex: [place] [address] Loc: N.ERSI 10 Exam Date: 10/17/2023 Status: ADM IN PH: FAX: PAGE 2 Signed Report- CT L-SPINE W/O [id number] 03:57:00 [facility] 2005 Sex: MPatient Name: RICO MERLOS Unit No: [id number] EXAMS: CPT: [id number] CT L-SPINE W/O CONTRAST 37375 CT LUMBAR SPINE WITHOUT CONTRAST, 10/17/2023. CLINICAL: Trauma. COMMENT: Transaxial plus sagittal/coronal reformatted images were obtained following enhanced Abdominal/Pelvic CT. 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 There is no evidence of acute fractures, destru ctive lesions, spondylolysis or spondylolisthesis. The regional skeleton is intact. CT imaging was performed using iterative reconstruction techniques and/or automated exposure control to reduce radiation dose. IMPRESSION: No evidence of acute fractures. at 0357 Reported and signed by: Ronald Sofia MD CC: Kat Rodriguez MD Technologist: CHRISSY Haney CTDI: DLP: Trscr Dt/Tm: 10/17/2023 (0357) by:[email or web address] Orig Print D/T: S: 10/17/2023 (0400) BATCH NO: N/A Name: RICO MERLOS [facility] Phys: PAVAN. Kat Rodriguez MD [address] [facility] : 2005 Age: 18 [place] [address] Loc: N.ERS Exam Date: 10/17/2023 Status: PRE ER PH: FAX: PAGE 1 Signed Report- CT T- SPINE W/O [id number] 03:56:00 [facility] 2005 Sex: MPatient Name: RICO MERLOS Unit No: [id number] EXAMS: CPT: [id number] CT T-SPINE W/O CONTRAST [address]236 CT THORACIC SPINE WITHOUT CONTRAST, 10/17/2023. CLINICAL: Trauma. COMMENT: Transaxial plus sagittal/coronal reformatted images were obtained following enhanced Chest CT. The vertebra and posterior elements appear within normal limits. There is no evidence of acute fractures, destructive lesions or listhesi s. The regional skeleton is intact. CT imaging was performed using iterative reconstruction techniques and/or automated exposure control to reduce radiation dose. IMPRESSION: No evidence of acute fractures. at 0356 Reported and signed by:Ronald Sofia MD CC: Kat Rodriguez MD Technologist: CHRISSY Haney CTDI: DLP: Trscr Dt/Tm: 10/17/2023 (0356) by:[email or web address] Orig Print D/T: S: 10/17/2023 (0359) BATCH NO: N/A Name: RICO MERLOS [facility] Phys: PAVAN.Lennox - Kat Rodriguez MD [address] : 2005 Age: 18 Sex: [place] [address] Loc: N.ERS Exam Date: 10/17/2023 Status: PRE ER PH: FAX: PAGE 1 Signed Report- CT ABD PELVIS [id number] 03:53:00 [facility] 2005 Sex: MPatient Name: RICO MERLOS Unit No: [id number] EXAMS: CPT: [id number] CT ABD PELVIS W/CONT 38878 CT abdomen and pelvis with contrast, 10/17/2023. Clinical: Trauma. Comment: Transaxial plus sagittal/coronal reformatted images were obtained following IV contrast administration. The liver appears within normal limits. There is an extensive splenic laceration with possible devascularization. The splenic vessels at the level of the hilum are not optimally visualized. There is probable active extravasationof contrast. There is a large volume of hemoperitoneum. The adrenal glands, pancreas, kidneys, aorta and IVC appear within normal limits except for a left renal laceration involving the superior pole. There is left perinephric fluid. The gallbladder is identified. There is no biliary duct dilatation or significant retroperitoneal lymphadenopathy. There is fluid distention of the esophagus. There is significant gastric distention. There is no evidence of small bowel distention. The appendix appears within normal limits. The colon is nondistended. There are no intrinsic lesions involving the urinary bladder. The regional skeleton is intact. Critical result: The trauma surgeon was notified ofthe above on 10/17/2023, [address] imaging was performed using iterative reconstruction techniques and/or automated exposure control to reduce radiation dose. IMPRESSION: 1. Abnormal findings asdescribed above. 2. AAST Grade IV-V splenic injury. 3. AAST Grade II- III left renal injury. 4. Hemoperitoneum. at 0353 Reported and signed by: Ronald Sofia MD CC: Kat Rodriguez MD Technologist: CHRISYS Haney CTDI: DLP: Trscr Dt/Tm: (0353) by:[email or web address] Orig Print D/T: S: 10/17/2023 (0357) BATCH NO: N/A Name: DORIAN MERLOS [facility] Phys: ALIALESSIO. - Kat Rodriguez MD [address] : 2005 Age: 18 Sex: [place] [address] Loc: N.ERS Exam Date: 10/17/2023 Status: PRE ER PH: FAX: PAGE1 Signed Report- CT CHEST [id number] 03:49:00 [facility] 2005 Sex: MPatient Name: RICO MERLOS Unit No: [id number] EXAMS: CPT: [id number] CT CHEST W/CONTRAST [address]042 CT chest with contrast, 10/17/2023. Clinical: Trauma. Comment: Transaxial postcontrast sagittal/coronal reformatted images were obtained following IV contrast administration. The mediastinum and hilar regions appear within normal limits. There is no thoracic aortic aneurysm and/or dissection. No pulmonary emboli are detected. There is a tiny right pneumothorax. There is a small left pneumothorax. There are bilateral pulmonary contusions, left greater than right. There are no significant pleural effusions or hemothoraces. There are acute fractures involving the posterior aspects of the left 5th-10th ribs. There is soft tissue emphysema primarily to the left of midline. Critical result: The trauma surgeon was notified of the above on 10/17/2023, [address] imaging was performed using iterative reconstruction techniques and/or automated exposure control to reduce radiation dose. IMPRESSION: Abnormal findings as described above. at 0349 Reported and signed by: Ronald Sofia MD CC: Kat Rodriguez MD Technologist: CHRISSY Haney CTDI: DLP: Trscr Dt/Tm: 10/17/2023 (034) by:[email or web address] Orig Print D/T: S: 10/17/2023 (035) BATCH NO: N/AName: RICO MERLOS [facility] Phys: ALISH.Kat Buckley MD [address] : 2005 Age: 18 Sex: [place] [address] Loc: N.ERS Exam Date: 10/17/2023 Status: PRE ER PH: FAX: PAGE 1 Signed ReportBASIC METABOLIC [id number] 03:43:00* Test Item Value Reference Range Interpretation Comme nts SODIUM (test code = NA) 139 mmol/L 135-145 N POTASSIUM (test code = K) 3.4 mmol/L 3.6-5.0 L CHLORIDE (test code = CL) 107 mmol/L 101-111 N CARBON DIOXIDE (test code = CO2) 19 mmol/L 21-31 L GLUCOSE (test code = GLU) 151 mg/dl 70-100 H BLOOD UREA NITROGEN (test code = BUN) 20 mg/dl 6-20 N GLOMERULAR FILTRATION RATE (test code = GFR) >=60 max estimate >60 The Glomerular Filtration Rate is a calculated parameterbased on serum Creatinine, patient age and sex. GFR valuesless than 60 mL/min/1.73 square meters are indicative ofChronic Kidney Disease. Values less than 15 mL/min/1.73square meters indicate Kidney failure. The calculation forGFR is based on the CKD-EPI (2020) calculation. This formulais race indifferent and is the recommended formula for GFRby the National Kidney Foundation for Adults.The GFR will not calculate if the sex is unknown or if thepatient's age is <18 years. CREATININE (test code = CREAT) 1.42 mg/dL 0.64-1.27 H CALCIUM (test code = CA) 8.8 mg/dL 8.5-10.5 N INDEX HEMOLYSIS (test code = HEMINDEX) 1 Index/DL See_Comment [Automated messa ge] The system which generated this result transmitted reference range: 1 NORMAL. The reference range was not used to interpret this result as normal/abnormal. INDEX ICTERIC (test code = ICTINDEX) 1 Index/DL See_Comment [Automated messa ge] The system which generated this result transmitted reference range: 1 NORMAL. The reference range was not used to interpret this result as normal/abnormal. INDEX LIPEMIA (test code = LIPINDEX) 0 Index/DL See_Comment [Automated messa ge] The system which generated this result transmitted reference range: 1 NORMAL. The reference range was not used to interpret this result as normal/abnormal. - CT C-SPINE W/O [id number] 03:36:00 [facility] 2005 Sex: MPatient Name: RICO MERLOS Unit No: [id number] EXAMS: CPT: [id number] CT C-SPINE W/O CONT 40010 CT CERVICAL SPINE WITHOUT CONTRAST, 10/17/2023. Comparison: None. Clinical: Trauma. Comment: Noncontrast transaxial plus sagittal/coronal reformatted images were obtained. The prevertebral soft tissues, vertebra, intervertebral disc spaces and posterior elements appear within normal limits. The odontoid process is intact. There is no evidence of acute fractures, destructive lesions or listhesis. Soft tissueemphysema is noted primarily to the left of midline. CT imaging was performed using iterative reconstruction techniques and/or automated exposure control to reduce radiation dose. Impression: No evidence to suggest acute osseous or prevertebral soft tissue abnormalities. at 0336 Reported and signed by: Ronald Sofia MD CC: Kat Rodriguez MD Technologist: CHRISSY Haney CTDI: DLP: Trscr Dt/Tm: 10/17/2023 (033) by:[email or web address] Orig Print D/T: S: 10/17/2023 (0339) BATCH NO: N/A Name: RCIO MERLOS [facility] Phys: ALISH. - Kat Rodriguez MD [address] : 2005 Age: 18 Sex: [place] [address] : N.ERS Exam Date: 10/17/2023 Status: PRE ER PH: FAX: PAGE 1 Signed ReportCBC W/AUTO [id number] 03:32:00* Test Item Value Reference Range Interpretation Comme nts WHITE BLOOD CELL (test code = WBC) 9.7 x10 3/uL 3.2-11.5 N RED BLOOD CELL (test code = RBC) 4.59 x10(6)/m 4.20-5.70 N HEMOGLOBIN (test code = HGB) 14.4 g/dL 12.9-17.3 N HEMATOCRIT (test code = HCT) 42.5 % 38.7-51.0 N MEAN CELL VOLUME (test code = MCV) 93 fL 80-100 N MEAN CELL HGB (test code = MCH) 31.4 pg 26.7-33.3 N MEAN CELL HGB CONCENTRATION (test code = MCHC) 33.9 g/dL 30.0-34.0 N RED CELL DISTRIBUTION WIDTH (test code = RDW) 12.3 % 11.3-14.5 N PLATELET COUNT (test code = PLT) 244 x10 3/uL 130-408 N MEAN PLATELET VOLUME (test c ode = MPV) 9.6 fL 8.6-12.6 N NEUTROPHIL % (test code = NT%) 45.5 % 40.0-70.0 N LYMPHOCYTE % (test code = LY%) 42.8 % 20-40 H MONOCYTE % (test code = MO%) 8.3 % 1-10 N EOSINOPHIL % (test code = EO%) 1.5 % 0.0-5.0 N BASOPHIL % (test code = BA%) 0.8 % 0.0-1.0 N NUCLEATED RBC % (test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
[2023-12-13 19:49] LABS: Absolute Lymphocytes (CBC) 1.5 K/uL (0.7-4.9); Hematocrit 44.3 % (39.6-49.0); Lymphocytes % 15.4 % (15.3-44.8); MCV 89.7 fL (80-100); MPV 7.3 fL (7.6-11.3); Platelets 349 thou/uL (152-406); RBC Red Blood Cell Count 4.94 M/uL (4.33-5.43)
[2023-12-13 20:07] LABS: Potassium 3.9 mEq/L (3.5-5.1)
[2023-12-13 20:08] LABS: Albumin 4.1 g/dL (3.4-5.0); Bilirubin Total 0.9 mg/dL (0.2-1.0); Troponin High Sensitivity 4.2 pg/mL (<58.9)
--- NOTE | 2023-12-13 20:16 | RAD REPORT ---
EXAM DESCRIPTION: CT - Chest Abdomen Pelvis W Cont - 12/13/2023 7:51 pm CLINICAL HISTORY: Chest and abdominal pain COMPARISON: December 08, 2023 TECHNIQUE: Computed axial tomography of the chest, abdomen and pelvis was obtained. 100 cc Isovue-30 0 was administered intravenously. Oral contrast was not requested. This limits evaluation of bowel. All CT scans are performed using dose optimization technique as appropriate and may include automated exposure control or mA/KV adjustment according to patient size. FINDINGS: Minimal left lower lobe atelectasis. Remainder lungs are clear No mediastinal or hilar lymphadenopathy. Hardware affixes subacute fractures left fifth through eighth ribs. Additional subacute mildly displa yoli fractures ninth and tenth posterior left ribs. No significant change since the prior exam No pneumothorax No pleural effusion. No pericardial effusion. Liver,, pancreas, adrenals and kidneys are unremarkable Splenectomy No evidence of diverticulitis IMPRESSION: No significant change in the appearance of the left rib subacute fractures No acute abnormality is displayed
--- NOTE | 2023-12-13 20:39 | RAD REPORT ---
EXAM DESCRIPTION: Jenna Single View12/13/2023 8:21 pm CLINICAL HISTORY: Chest pain COMPARISON: none FINDINGS: The lungs appear clear of acute infiltrate. The heart is normal size Hardware affixes subacute left rib fractures IMPRESSION: No acute abnormalities displayed
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
[2023-12-13 23:17] VITALS: BP 131/77; TEMP 98.4; O2SAT 95
== END ==
LOC: ER 19:10
DX: S22.42XG Multiple fractures of ribs, left side, subsequent encounter for fracture with delayed healing (principal)
CPT/HCPCS: 36415; 71045; 71260; 74177; 80053; 83690; 84484; 85025; 93005; 96365; 96366; 96375; 99285; J1100; J2800; J3010; J7030; Q9967